=== PATIENT | female | born 1975 | race Caucasian/White ===

== ENCOUNTER 2017-09-07 11:40 | Emergency (ER) | payer MEDICAID ==
[~2017-09-07] VITALS: Ht 154.9 cm; Wt 106.6 kg
[~2017-09-07 11:40] MED LIST: ASCO500T45 PO; ASPI81CT89 PO; ATOR20TA40 PO; FERR325E14 PO; WARF5TAB1 PO
[2017-09-07 11:45] VITALS: BP 114/83
[2017-09-07] MEDS ORDERED: KETOROLAC 30 MG/ML VIAL IM ONE (12:15)
[2017-09-07] MEDS ORDERED: NACL 0.9% 1,000 ML IV ONE (12:15)
[2017-09-07 12:49] LABS: LYMPHOCYTES # (AUTO) 1.3 K/uL (2.5-16.5); WHITE BLOOD COUNT (AUTO) 8.1 K/uL (4.8-10.8)
[2017-09-07 12:55] LABS: BASOPHILS % (AUTO) 0.5 % (0.0-2.0); EOSINOPHILS # (AUTO) 0.1 K/uL (0-0.4); EOSINOPHILS % (AUTO) 1.6 % (0.0-4.0); HEMATOCRIT 26.5 % (36-48); LYMPHOCYTES % (AUTO) 16.6 % (20.5-51.1); MEAN CORPUSCULAR HEMOGLOBIN 20 pg (27-31); MEAN CORPUSCULAR HGB CONC 30 g/dL (33-37); MEAN CORPUSCULAR VOLUME 66.8 fL (80-94); MONOCYTES # (AUTO) 0.6 K/uL (0.8-1.0); MONOCYTES % (AUTO) 7.2 % (1.7-9.3); NEUTROPHILS % (AUTO) 74.1 % (42.2-75.2); PLATELET COUNT (AUTO) 404 K/uL (140-450); RED BLOOD CELL COUNT(AUTO) 3.97 MIL/uL (4.20-5.40); RED CELL DISTRIBUTION WIDTH 21.1 % (11.6-13.7)
[2017-09-07 13:07] LABS: PROTHROMBIN TIME 19.3 secs (10.8-13.4)
[2017-09-07 13:11] LABS: ALBUMIN 3.1 g/dL (3.4-5.0); ANION GAP 15.3 (8-16); CARBON DIOXIDE 24.8 mmol/L (21-32); CREATININE 0.7 mg/dL (0.6-1.3); POTASSIUM 4.1 mmol/L (3.5-5.1); TOTAL BILIRUBIN 0.2 mg/dL (0.0-1.0)
[2017-09-07 13:21] LABS: APPEARANCE,URINE TURBID (CLEAR); BILIRUBIN,URINE NEGATIVE (NEGATIVE); BLOOD, URINE 3+ (NEGATIVE); COLOR,URINE RED (YELLOW); LEUKOCYTE ESTERASE ,URINE TRACE (NEGATIVE); NITRITE, URINE NEGATIVE (NEGATIVE); UGLUCOSE NEGATIVE (NEGATIVE)
[2017-09-07 13:55] LABS: RBC,URINE TOO NUMEROUS TO COUN /HPF (0-5)
[2017-09-07 13:56] LABS: WBC,URINE 0-5 (RARE) /HPF (0-5)
[2017-09-07 15:11] VITALS: BP 120/71
== END 2017-09-07 15:04 | disposition home or self-care (01) ==
LOC: MED 11:40
DX: N93.8 Other specified abnormal uterine and vaginal bleeding (principal); N92.0 Excessive and frequent menstruation with regular cycle; D50.0 Iron deficiency anemia secondary to blood loss (chronic); R42 Dizziness and giddiness; E11.9 Type 2 diabetes mellitus without complications; Z79.899 Other long term (current) drug therapy
CPT/HCPCS: 36415; 76830; 80053; 81001; 81025; 85025; 85610; 85730; 96360; 96372; 99285; J1885; J7030; Q0092

== ENCOUNTER 2018-02-28 04:45 | Inpatient (IN) | payer MEDICAID ==
[~2018-02-28] VITALS: Ht 154.9 cm; Wt 103.4 kg
[2018-02-28 04:50] VITALS: BP 123/60
--- NOTE | 2018-02-28 04:57 | NUR ---
PT TAKEN TO BED 9
--- NOTE | 2018-02-28 05:05 | NUR ---
Dr. Cole evaluating patient at bedside.
--- NOTE | 2018-02-28 05:10 | NUR ---
PATIENT PRESENTS TO ED WITH L LEG PAIN. PT STATES SWELLING AND LEG PAIN X 4DAYS. L LEG IS VISIBLY SWOLLEN, PEDAL PULSES PRESENT, PT DENIES ANY NUMBNESS OR TINGLING IN TOES. DENIES N/V/D; SKIN IS PINK/WARM/DRY; PATIENT STATES PAIN OF 4/10 AT THIS TIME; VSS; PATIENT POSITIONED FOR COMFORT; HOB ELEVATED; BEDRAILS UP X2; BED DOWN. ER MD MADE AWARE OF PT STATUS.
--- NOTE | 2018-02-28 05:15 | NUR ---
LABS DRAWN BY RN AT BEDSIDE AND WALKED TO LAB
--- NOTE | 2018-02-28 05:35 | NUR ---
Ultrasound at bedside.
[2018-02-28 05:55] LABS: ALBUMIN 3.3 g/dL (3.4-5.0); ANION GAP 16.5 (8-16); CARBON DIOXIDE 24.2 mmol/L (21-32); CREATININE 0.7 mg/dL (0.6-1.3); POTASSIUM 3.7 mmol/L (3.5-5.1); TOTAL BILIRUBIN 0.5 mg/dL (0.0-1.0)
[2018-02-28] MEDS ORDERED: NACL 0.9% 1,000 ML IV ONE (05:55)
[2018-02-28 05:56] LABS: PROTHROMBIN TIME 12.9 secs (10.8-13.4)
[2018-02-28] MEDS ORDERED: ENOXAPARIN 100 MG/ML SYR SUBQ ONE (06:00)
[2018-02-28] MEDS ORDERED: MORPHINE SULFATE 2 MG/ML SYR IVP PRN (06:05)
[2018-02-28] MEDS ORDERED: hePARIN / DEXT 5% PREMIX 250 ML IV SCH (06:05)
[2018-02-28] MEDS ORDERED: LORazepam 2 MG/ML VIAL IM/IVP PRN (06:05)
[2018-02-28] MEDS ORDERED: DOCUSATE SODIUM 100 MG GELCAP PO PRN (06:05)
[2018-02-28] MEDS ORDERED: ONDANSETRON 4 MG/2 ML VIAL IM/IVP PRN (06:05)
[2018-02-28] MEDS ORDERED: ZOLPIDEM 5 MG TAB PO PRN (06:05)
[2018-02-28] MEDS ORDERED: HEPARIN PER PHARMACY MC PRN (06:05)
--- NOTE | 2018-02-28 06:15 | NUR ---
CALLED LAB TO NOTIFY THEM TO SEND TECH FOR RE-DRAW FOR CBC.
--- NOTE | 2018-02-28 06:20 | NUR ---
X-Ray at bedside.
--- NOTE | 2018-02-28 06:30 | NUR ---
RECEIVED PT FROM ER PER CELIA, AMBULATED TO BED WITH STANDBY ASSIST, VITAL SIGNS TAKEN, NO RESP DISTRESS NOTED, MADE COMFORTABLE ON BED, DR JACOBS AT BEDSIDE INTERVIEWING THE PT, CALL LIGHT WITHIN REACH.
--- NOTE | 2018-02-28 06:33 | NUR ---
Patient will be admitted to care of PAPITO GARCIA. Admited to MED/SURG. TRANSFERRED to room 112B. VSS. Belongings list completed. Report to CINDI BURDICK.
--- NOTE | 2018-02-28 06:50 | NUR ---
MRSA NARES SPECIMEN SENT TO LAB.
[2018-02-28 07:04] LABS: RED BLOOD CELL COUNT(AUTO) 3.97 MIL/uL (4.20-5.40); WHITE BLOOD COUNT (AUTO) 16.3 K/uL (4.8-10.8)
[2018-02-28 07:06] LABS: HEMATOCRIT 23.9 % (36-48); HEMOGLOBIN 6.9 g/dL (12.0-16.0); MEAN CORPUSCULAR HEMOGLOBIN 18 pg (27-31); MEAN CORPUSCULAR HGB CONC 29 g/dL (33-37); MEAN CORPUSCULAR VOLUME 60.1 fL (80-94); PLATELET COUNT (AUTO) 358 K/uL (140-450); RED CELL DISTRIBUTION WIDTH 20.9 % (11.6-13.7)
--- NOTE | 2018-02-28 07:15 | NUR ---
PT AWAKE, NO SIGNS OF DISTRESS, BEDSIDE REPORT GIVEN TO HEAVENLY CEBALLOS FOR CONTINUITY OF CARE.
--- NOTE | 2018-02-28 07:16 | NUR ---
RECEIVED REPORT FROM JOB COACHING NURSE. PT IN STABLE CONDITION. RESPIRATIONS EVEN AND UNLABORED. IV INTACT AND PATENT. SAFETY MEASURES IN PLACE. BED IN LOW POSITION. CALL LIGHT AT BEDSIDE. WILL CONTINUE TO MONITOR.
[2018-02-28 07:18] LABS: EOSINOPHILS % (MANUAL) 3 % (0-4); LYMPHOCYTES % (MANUAL) 6 % (20-46); MONOCYTES % (MANUAL) 4 % (5-12)
[2018-02-28 07:27] LABS: MAGNESIUM 1.9 mg/dL (1.8-2.4); PHOSPHORUS 3.1 mg/dL (2.5-4.9); THYROID STIMULATING HORMONE 0.73 uIU/mL (0.34-3.74)
--- NOTE | 2018-02-28 07:37 | NUR ---
DR JACOBS MADE AWARE OF LOW HGB-6.9.
[2018-02-28 08:00] VITALS: BP 114/54
--- NOTE | 2018-02-28 08:21 | NUR ---
GAVE REPORT TO [facility] FOR CONTINUITY OF CARE. PT SWITCHED FROM MED SURG TO TELE MONITOR. PT IN STABLE CONDITION.
--- NOTE | 2018-02-28 08:22 | NUR ---
REPORT RECEIVED FROM RN LIN, PT AWAKE ALERT, RESP EVEN UNLABORED, SKIN WARM DRY COLOR WLN, PT DENIES PAIN OR DISCOMFORT, SITTING UP EATING BREAKFAST, PT ORIENTED TO ROOM AND FLOOR, PLAN OF CARE REVIEWED, CALL PENG WITHIN REACH, SIDE RAILS UP, BED LOCKED IN LOW POSITION, WILL CONTINUE TO MONITOR.
[2018-02-28] MEDS: HYDROcodone/APAP 5/325 MG 1 TAB TAB PO PRN ×2 (08:40→23:58)
--- NOTE | 2018-02-28 08:59 | NUR ---
PATIENT HAS BEEN SCREENED AND CATEGORIZED HIGH NUTRITION RISK. PATIENT WILL BE SEEN WITHIN 1-2 DAYS OF ADMISSION. 02/28/18 03/01/[address]
--- NOTE | 2018-02-28 10:10 | NUR ---
PT UP TO BATHROOM, LIMPS DUE TO PAIN, DENIES DIZZINESS OR LIGHT HEADEDNESS, DENIES SOB, VASYL WELL
[2018-02-28] MEDS: RIVAROXABAN 15 MG TAB PO SCH ×2 (10:22→21:05)
[2018-02-28] MEDS: NACL 0.9% 1,000 ML IV SCH ×2 (10:22→22:43)
--- NOTE | 2018-02-28 10:35 | NUR ---
20G PIV TO R AC, PT VASYL WELL, PT SIGNED CONTRAST CONSENT, RADIOLOGY AWARE.
[2018-02-28 12:00] VITALS: BP 109/60
[2018-02-28] MEDS ORDERED: WARF5TAB1 PO (12:20)
--- NOTE | 2018-02-28 12:27 | NUR ---
02/28/18 RD INITIAL ASSESSMENT COMPLETED PLEASE REFER TO NUTRITION ASSESSMENT UNDER CARE ACTIVITY FOR ESTIMATED NUTRITIONAL NEEDS. 1. RECOMMEND ADVANCE DIET TO [facility] [address] PROVIDED EDUCATION ON DIABETES 3. RD TO FOLLOW-UP 3-5 DAYS, MODERATE RISK LUCIA WARNER RD
[2018-02-28] MEDS ORDERED: SODIUM FERRIC GLUCONATE 125 MG in NACL 0.9% 100 ML IV SCH (12:30)
[2018-02-28 16:00] VITALS: BP 118/64
--- NOTE | 2018-02-28 16:46 | NUR ---
PT UP OUT OF BED TO BATHROOM, STEADY GAIT WITH SLIGHT LIMP, DENIES SOB, DIFF BREATHING, O2 SAT MAINTAINS AT 96% RA, DENIES PAIN AT THIS TIME WILL CONTINUE TO MONITOR. FAMILY AT BEDSIDE
[2018-02-28 16:49] LABS: BARBITURATE, URINE NEGATIVE ng/ml (NEG <=200); BENZODIAZEPINE, URINE NEGATIVE ng/mL (NEG <=200); CANNABINOID, URINE NEGATIVE ng/mL (NEG <=50); COCAINE, URINE NEGATIVE ng/mL (NEG <=300); OPIATE, URINE NEGATIVE ng/mL (NEG <=2000); PHENCYCLIDINE SCREEN,URINE NEGATIVE ng/mL (NEG <=25)
--- NOTE | 2018-02-28 17:50 | NUR ---
PT SITTING UP IN BED RESTING QUIETLY IN NAD, RESP EVEN UNLABORED, SKIN WARM DRY COLOR WNL, DENIES CHEST PAIN OR DIFF BREATHING, IVF INFUSING, IV SITE WNL.
[2018-02-28] MEDS ORDERED: FERROUS SULFATE 325 MG TABEC PO SCH (18:00)
[2018-02-28] MEDS: ATORVASTATIN 20 MG TAB PO SCH (21:04)
[2018-02-28] MEDS: ASCORBIC ACID 500 MG TAB PO SCH (21:05)
[2018-02-28 21:36] LABS: APPEARANCE,URINE CLEAR (CLEAR); COLOR,URINE STRAW (YELLOW); PH,URINE 5.5 (5.0-9.0); UGLUCOSE NEGATIVE (NEGATIVE)
[2018-02-28 21:37] LABS: BILIRUBIN,URINE NEGATIVE (NEGATIVE); BLOOD, URINE LARGE (NEGATIVE); LEUKOCYTE ESTERASE ,URINE NEGATIVE (NEGATIVE); NITRITE, URINE NEGATIVE (NEGATIVE); RBC,URINE NONE SEEN /HPF (0-5); WBC,URINE 0-5 (RARE) /HPF (0-5)
--- NOTE | 2018-02-28 23:55 | NUR ---
RECEIVED REPORT FROM OTHER EMS INSTRUCTOR NURSE. PT LYING IN BED, WATCHING TV. NO C/O PAIN OR SOB. IVF INFUSING WELL. CALL LIGHT WITHIN REACH.
[2018-03-01] VITALS: BP 126/73
--- NOTE | 2018-03-01 02:30 | NUR ---
PT SLEEPING. NO S/S OF PAIN OR RESP DISTRESS NOTED. CALL LIGHT WITHIN REACH.
[2018-03-01 04:00] VITALS: BP 103/60
--- NOTE | 2018-03-01 05:00 | NUR ---
PT SLEEPING BUT EASILY AROUSABLE. NO S/S OF ACUTE DISTRESS NOTED.
[2018-03-01 07:07] LABS: ANION GAP 12.3 (8-16); CARBON DIOXIDE 27.5 mmol/L (21-32); CREATININE 0.6 mg/dL (0.6-1.3); POTASSIUM 3.8 mmol/L (3.5-5.1)
--- NOTE | 2018-03-01 07:25 | NUR ---
ENDORSED PT TO DAY SHIFT NURSE. PT IN STABLE CONDITION.
--- NOTE | 2018-03-01 07:28 | NUR ---
RECEIVED BEDSIDE REPORT FROM GROUNDWATER PROGRAMS DIRECTOR RN. PT IN STABLE CONDITION. DENIES PAIN AND DISCOMFORT AT THIS TIME. DENIES SOB/DIFFICULTY BREATHING. NO S/S RESPIRATORY DISTRESS. LUNGS CTA. HEART RHYTHM REGULAR. VITALS STABLE. SKIN INTACT. PT IS AMBULATORY PER GROUNDWATER PROGRAMS DIRECTOR RN. IV SITE PATENT AND ASYMPTOMATIC, INFUSING IVF PER MD ORDERS. 1+ PITTING EDEMA IN LLE. NO ERYTHEMA NOTED. ALL SAFETY PRECAUTIONS IN PLACE, WILL CONTINUE TO MONITOR. Addendum: 03/01/18 at 0810 by Alta Sylvester Meng, RN AOX4
[2018-03-01 07:47] LABS: CHOL/HDL RATIO 2.1 (1-4.5)
[2018-03-01 08:00] VITALS: BP 105/60
[2018-03-01 08:14] LABS: HEMATOCRIT 21.1 % (36-48); MEAN CORPUSCULAR HEMOGLOBIN 16 pg (27-31); MEAN CORPUSCULAR HGB CONC 27 g/dL (33-37); PLATELET COUNT (AUTO) 304 K/uL (140-450); RED BLOOD CELL COUNT(AUTO) 3.52 MIL/uL (4.20-5.40); RED CELL DISTRIBUTION WIDTH 22.7 % (11.6-13.7); WHITE BLOOD COUNT (AUTO) 9.2 K/uL (4.8-10.8)
[2018-03-01 08:16] LABS: HEMOGLOBIN 5.8 g/dL (12.0-16.0)
[2018-03-01 08:59] LABS: BASOPHILS % (MANUAL) 0 % (0-2); EOSINOPHILS % (MANUAL) 1 % (0-4); LYMPHOCYTES % (MANUAL) 17 % (20-46); MONOCYTES % (MANUAL) 5 % (5-12)
[2018-03-01] MEDS ORDERED: FERROUS SULFATE 325 MG TABEC PO SCH ×2 (09:00→09:30)
--- NOTE | 2018-03-01 09:20 | NUR ---
LAB HERE TO DRAW TYPE AND SCREEN.
[2018-03-01] MEDS: RIVAROXABAN 15 MG TAB PO SCH (09:23)
[2018-03-01] MEDS: ASCORBIC ACID 500 MG TAB PO SCH ×2 (09:23→20:46)
--- NOTE | 2018-03-01 09:31 | NUR ---
DR. PIZANO SPOKE WITH PATIENT REGARDING BLOOD TRANSFUSION. PER DR. PIZANO, WILL TRANSFUSE 1 UNIT PRBC THEN REPEAT LABS.
--- NOTE | 2018-03-01 11:02 | NUR ---
PATIENT SPEAKING WITH FAMILY MEMBER AT BEDSIDE. AOX4. DENIES DIZZINESS, LIGHTHEADEDNESS, WEAKNESS. WILL CONTINUE TO MONITOR. TYPE AND SCREEN STILL PENDING.
[2018-03-01 12:00] VITALS: BP 118/70
[2018-03-01] MEDS ORDERED: ENOXAPARIN 80 MG/0.8 ML SYR SUBQ SCH (12:00)
[2018-03-01] MEDS: FUROSEMIDE 20 MG TAB PO SCH ×2 (12:00→16:57)
[2018-03-01] MEDS ORDERED: LOVENOX 1MG/KG Q12H SUBQ SCH (12:00)
--- NOTE | 2018-03-01 12:05 | NUR ---
BENADRYL AND LASIX NOT ADMINISTERED AT THIS TIME. TYPE AND SCREEN STILL PENDING.
--- NOTE | 2018-03-01 12:08 | NUR ---
PER LAB, THEY WILL HAVE RESULTS FOR TYPE AND SCREEN IN 15 MINUTES.
--- NOTE | 2018-03-01 12:20 | NUR ---
PER NM TECH, SHE WILL BE HERE FOR THE V/Q SCAN AT AROUND 1800 TODAY.
--- NOTE | 2018-03-01 12:42 | NUR ---
TYPE AND SCREEN RESULTS STILL NOT AVAILABLE. PATIENT IS SITTING UP IN BED, EATING LUNCH. CONTINUES TO DENY DIZZINESS/LIGHTHEADEDNESS AND WEAKNESS. TOLD PATIENT TO REMAIN IN BED SHE MAY EXPERIENCE DIZZINESS UPON RISING. PT VERBALIZED UNDERSTANDING. CASHIER MANAGER AWARE THAT TYPE AND SCREEN PENDING.
--- NOTE | 2018-03-01 13:56 | NUR ---
STARTED BLOOD TRANSFUSION. VITALS STABLE. PT HAS BEEN TACHY AT BASELINE. EDUCATED PT ON THE POSSIBLE SIDE EFFECTS TO PATIENT AND TO NOTIFY RN IMMEDIATELY IF S/S TRANSFUSION REACTION. PT IS PRIMARILY [place] SPEAKING BUT PREFERS FAMILY MEMBER AT BEDSIDE TO TRANSLATE. PT AND FAMILY MEMBER VERBALIZED COMPLETE UNDERSTANDING.
--- NOTE | 2018-03-01 14:10 | NUR ---
NO S/S OF TRANSFUSION REACTION. WILL CONTINUE TO MONITOR.
[2018-03-01] MEDS: NACL 0.9% 1,000 ML IV SCH ×2 (15:23→17:39)
[2018-03-01 16:00] VITALS: BP 113/66
--- NOTE | 2018-03-01 16:13 | NUR ---
HELPED PATIENT TO THE BATHROOM. DENIES DIZZINESS, LIGHTHEADEDNESS, WEAKNESS. PT AMBULATORY WITHOUT ASSIST. SLIGHT LIMP TO LEFT LEG. ALL SAFETY PRECAUTIONS IN PLACE.
[2018-03-01] MEDS: FERROUS SULFATE 325 MG TABEC PO SCH (17:01)
--- NOTE | 2018-03-01 17:06 | NUR ---
NOTIFIED DR. PIZANO THAT BLOOD TRANSFUSION HAS COMPLETED. DR. PIZANO TO ORDER CBC. WILL HOLD OFF ON FURTHER TRANSFUSION UNTIL CBC RESULTS BACK.
[2018-03-01] MEDS: ACETAMINOPHEN 325 MG TAB PO PRN (17:40)
--- NOTE | 2018-03-01 17:40 | NUR ---
PATIENT COMPLAINING OF MILD 2/10 HEADACHE. DENIES BACK PAIN, CHILLS, DIZZINESS, SOB, ITCHING. TEMP IS 98.9 F NOW. WILL CONTINUE TO MONITOR.
--- NOTE | 2018-03-01 18:04 | NUR ---
PER LAB, TECH IS ALREADY ON THE FLOOR TO DRAW STAT CBC.
--- NOTE | 2018-03-01 18:09 | NUR ---
NOTIFIED DR. APPLE THAT LDH BODY FLUID WAS ORDERED. DR. APPLE TO CHANGE ORDER TO LDH SERUM. PER DR. APPLE, PT IS OKAY TO GO TO V/Q SCAN WITHOUT WAITING FOR STAT CBC RESULTS.
--- NOTE | 2018-03-01 18:33 | NUR ---
NM TECH HERE TO TAKE PT TO V/Q SCAN.
[2018-03-01 18:37] LABS: BASOPHILS # (AUTO) 0.2 K/uL (0.00-0.22); BASOPHILS % (AUTO) 1.6 % (0.0-2.0); EOSINOPHILS # (AUTO) 0.2 K/uL (0-0.4); EOSINOPHILS % (AUTO) 2.4 % (0.0-4.0); HEMATOCRIT 26.3 % (36-48); HEMOGLOBIN 7.6 g/dL (12.0-16.0); LYMPHOCYTES # (AUTO) 0.7 K/uL (2.5-16.5); LYMPHOCYTES % (AUTO) 7.2 % (20.5-51.1); MEAN CORPUSCULAR HEMOGLOBIN 18 pg (27-31); MEAN CORPUSCULAR HGB CONC 29 g/dL (33-37); MONOCYTES # (AUTO) 1.2 K/uL (0.8-1.0); MONOCYTES % (AUTO) 12.4 % (1.7-9.3); NEUTROPHILS # (AUTO) 7.7 K/uL (1.8-7.7); NEUTROPHILS % (AUTO) 76.4 % (42.2-75.2); PLATELET COUNT (AUTO) 340 K/uL (140-450); RED BLOOD CELL COUNT(AUTO) 4.18 MIL/uL (4.20-5.40); RED CELL DISTRIBUTION WIDTH 26.6 % (11.6-13.7)
--- NOTE | 2018-03-01 19:14 | NUR ---
ENDORSED POC TO ACCOUNTING ASSISTANT RN. PT IN NUCLEAR MED FOR V/Q SCAN NOW.
--- NOTE | 2018-03-01 19:15 | NUR ---
RECEIVED REPORT FROM DAY SHIFT NURSE TANNER-RN. PT CURRENTLY OFF UNIT FOR PULMONARY VQ. ACCORDING TO DAY SHIFT NURSE PT IS AOX4- ARABIC SPEAKING, ON ROOM AIR WITH IV SITES ON RIGHT HAND #22G AND RIGHT AC#22G INFUSING NS @60ML/HR. LEFT LEG EDEMA +3. DISCUSSED PLAN OF CARE AND PT VERBALIZED UNDERSTANDING. NO S/S OF RESPIRATORY DISTRESS OR DISCOMFORT NOTED AT THIS TIME. BED IN LOWEST POSITION, BED BREAKS ON, AND BOTH SIDE RAILS UP. BEDSIDE TABLE AND CALL LIGHT ARE WITHIN REACH. WILL CONTINUE TO MONITOR.
[2018-03-01 20:00] VITALS: BP 113/71
--- NOTE | 2018-03-01 20:00 | NUR ---
VITAL SIGNS TAKEN AND TOLERATED WELL. SPOKE WITH DR. HERNANDEZ; HOLD BENADRYL DUE TO NO OTHER ORDER OF RBC'S TO TRANSFUSE. PT ALSO REFUSED US DUE TO MALE WATER RIGHTS SPECIALIST, REQUESTING FEMALE. MD AWARE. NO S/S OF RESPIRATORY DISTRESS OR DISCOMFORT NOTED AT THIS TIME. WILL CONTINUE TO MONITOR.
[2018-03-01] MEDS: ATORVASTATIN 20 MG TAB PO SCH (20:46)
[2018-03-01] MEDS: ENOXAPARIN 100 MG/ML SYR SUBQ SCH (20:50)
--- NOTE | 2018-03-01 20:50 | NUR ---
SCHEDULED MEDICATION GIVEN. PT TOLERATED WELL. NO S/S OF RESPIRATORY DISTRESS OR DISCOMFORT NOTED AT THIS TIME. WILL CONTINUE TO MONITOR.
--- NOTE | 2018-03-01 22:00 | NUR ---
PT RESTING IN BED. NO S/S OF RESPIRATORY DISTRESS OR DISCOMFORT NOTED AT THIS TIME. WILL CONTINUE TO MONITOR.
[2018-03-02] VITALS: BP 124/72
--- NOTE | 2018-03-02 | NUR ---
VITAL SIGNS TAKEN AND TOLERATED WELL. NO S/S OF RESPIRATORY DISTRESS OR DISCOMFORT NOTED AT THIS TIME. WILL CONTINUE TO MONITOR.
--- NOTE | 2018-03-02 01:12 | NUR ---
PULMONARY VQ RESULTS: PULMONARY EMBOLISM. DR. BRIDGER CHAIDEZ.
--- NOTE | 2018-03-02 02:00 | NUR ---
PT SLEEPING IN BED. NO S/S OF RESPIRATORY DISTRESS OR DISCOMFORT NOTED AT THIS TIME. WILL CONTINUE TO MONITOR.
[2018-03-02 04:00] VITALS: BP 105/56
--- NOTE | 2018-03-02 04:00 | NUR ---
VITAL SIGNS TAKEN AND TOLERATED WELL. NO S/S OF RESPIRATORY DISTRESS OR DISCOMFORT NOTED AT THIS TIME. WILL CONTINUE TO MONITOR.
--- NOTE | 2018-03-02 06:00 | NUR ---
PT CONTINUES TO SLEEP. NO S/S OF RESPIRATORY DISTRESS OR DISCOMFORT NOTED AT THIS TIME. WILL CONTINUE TO MONITOR.
--- NOTE | 2018-03-02 07:09 | NUR ---
ENDORSED PT CARE TO DAY SHIFT NURSE TANNER-HEAVENLY FOR CONTINUITY OF CARE.
--- NOTE | 2018-03-02 07:15 | NUR ---
RECEIVED BEDSIDE REPORT FROM INDUSTRIAL CLEANING TECHNICIAN RN. PT IN STABLE CONDITION. SLEEPING IN BED, AROUSABLE BY VOICE. STATES TOLERABLE 2/10 LLE PAIN IN LLE. 1+ PITTING EDEMA IN LLE. NO ERYTHEMA NOTED. DENIES SOB/DIFFICULTY BREATHING. NO S/S RESPIRATORY DISTRESS. LUNGS CTA. HEART RHYTHM REGULAR. VITALS STABLE. DENIES DIZZINESS/LIGHTHEADEDNESS. SKIN INTACT. PT IS AMBULATORY WITH BRP. IV SITE PATENT AND ASYMPTOMATIC, INFUSING IVF PER MD ORDERS. ALL SAFETY PRECAUTIONS IN PLACE, WILL CONTINUE TO MONITOR.
[2018-03-02 08:00] VITALS: BP 112/62
[2018-03-02 08:07] LABS: HEMATOCRIT 25.1 % (36-48); HEMOGLOBIN 7.4 g/dL (12.0-16.0); MEAN CORPUSCULAR HEMOGLOBIN 19 pg (27-31); MEAN CORPUSCULAR HGB CONC 29 g/dL (33-37); MEAN CORPUSCULAR VOLUME 63.8 fL (80-94); PLATELET COUNT (AUTO) 334 K/uL (140-450); RED BLOOD CELL COUNT(AUTO) 3.94 MIL/uL (4.20-5.40); RED CELL DISTRIBUTION WIDTH 26.2 % (11.6-13.7); WHITE BLOOD COUNT (AUTO) 9.4 K/uL (4.8-10.8)
[2018-03-02 08:18] LABS: CARBON DIOXIDE 24.8 mmol/L (21-32); CREATININE 0.6 mg/dL (0.6-1.3); POTASSIUM 3.8 mmol/L (3.5-5.1)
[2018-03-02 08:25] LABS: MAGNESIUM 2.1 mg/dL (1.8-2.4); PHOSPHORUS 3.9 mg/dL (2.5-4.9)
[2018-03-02] MEDS: FERROUS SULFATE 325 MG TABEC PO SCH ×2 (08:48→17:14)
[2018-03-02 08:49] LABS: BASOPHILS % (MANUAL) 0 % (0-2); EOSINOPHILS % (MANUAL) 2 % (0-4); LYMPHOCYTES % (MANUAL) 18 % (20-46); MONOCYTES % (MANUAL) 7 % (5-12)
[2018-03-02] MEDS: ASCORBIC ACID 500 MG TAB PO SCH ×2 (08:49→21:02)
[2018-03-02] MEDS: HYDROcodone/APAP 5/325 MG 1 TAB TAB PO PRN ×2 (08:49→21:03)
[2018-03-02] MEDS: ENOXAPARIN 100 MG/ML SYR SUBQ SCH ×2 (08:53→21:09)
--- NOTE | 2018-03-02 08:53 | NUR ---
SCHEDULED MEDS ADMINISTERED PER DR. DE PAZ ADMINISTERED TYLENOL FOR C/O 05/04 MILD HEADACHE. WILL CONTINUE TO MONITOR. Addendum: 03/02/18 at 1252 by Alta Sylvester Meng, RN DISREGARD. WRONG PATIENT.
--- NOTE | 2018-03-02 08:53 | NUR ---
SCHEDULED MEDICATIONS ADMINISTERED PER ORDERS. ADMINISTERED NORCO FOR PT C/O 07/02 LLE PAIN. WILL CONTINUE TO MONITOR.
--- NOTE | 2018-03-02 11:31 | NUR ---
PT IS RESTING IN BED, CONVERSING WITH FAMILY MEMBERS AT BEDSIDE. ALL SAFETY PRECAUTIONS IN PLACE, WILL CONTINUE TO MONITOR.
[2018-03-02 12:00] VITALS: BP 117/62
--- NOTE | 2018-03-02 12:46 | NUR ---
PT RESTING IN BED. VITALS STABLE. NO C/O PAIN OR DISCOMFORT AT THIS TIME. WILL CONTINUE TO MONITOR.
[2018-03-02] MEDS: NACL 0.9% 1,000 ML IV SCH (14:37)
--- NOTE | 2018-03-02 14:51 | NUR ---
AT PATIENT'S REQUEST, DISCONNECTED FROM IVF AND SET UP BED BATH SUPPLIES FOR PATIENT. PATIENT DOES NOT NEED/WANT HELP WITH BED BATH. ALL SAFETY PRECAUTIONS IN PLACE, WILL CONTINUE TO MONITOR.
[2018-03-02 16:00] VITALS: BP 117/48
--- NOTE | 2018-03-02 17:17 | NUR ---
ADMINISTERED SCHEDULED MEDICATIONS PER MD ORDERS. PATIENT INQUIRING ABOUT US PELVIS NON OB.
--- NOTE | 2018-03-02 17:23 | NUR ---
CALLED CT/RADIOLOGY. TECH WILL BE HERE LATER TODAY FOR THE US PELVIS NON OB.
--- NOTE | 2018-03-02 19:09 | NUR ---
ENDORSED POC TO TREASURY MANAGER RN FOR CONTINUITY OF CARE. PT IN STABLE CONDITION.
--- NOTE | 2018-03-02 19:10 | NUR ---
RECEIVED REPORT FROM DAY SHIFT NURSE TANNER-RN. PT CURRENTLY OFF UNIT FOR PULMONARY VQ. ACCORDING TO DAY SHIFT NURSE PT IS AOX4- UPPER SORBIAN SPEAKING, ON ROOM AIR WITH IV SITES ON RIGHT HAND #22G AND RIGHT AC#22G INFUSING NS @60ML/HR. LEFT LEG EDEMA +3. DISCUSSED PLAN OF CARE AND PT VERBALIZED UNDERSTANDING. NO S/S OF RESPIRATORY DISTRESS OR DISCOMFORT NOTED AT THIS TIME. BED IN LOWEST POSITION, BED BREAKS ON, AND BOTH SIDE RAILS UP. BEDSIDE TABLE AND CALL LIGHT ARE WITHIN REACH. WILL CONTINUE TO MONITOR.
[2018-03-02 20:00] VITALS: BP 108/55
--- NOTE | 2018-03-02 20:00 | NUR ---
VITAL SIGNS TAKEN AND TOLERATED WELL. NO S/S OF RESPIRATORY DISTRESS OR DISCOMFORT NOTED AT THIS TIME. WILL CONTINUE TO MONITOR.
[2018-03-02] MEDS: ATORVASTATIN 20 MG TAB PO SCH (21:03)
--- NOTE | 2018-03-02 21:09 | NUR ---
SCHEDULED MEDICATION GIVEN. PT ALSO C/O PAIN 09/01- MEDICATED WITH NORCO. PT TOLERATED WELL. PT ALSO SUGGESTED HOT BLANKET. SPOKE WITH DR. SPARKS AND K-PAD HAS BEEN ORDERED. NO S/S OF RESPIRATORY DISTRESS OR DISCOMFORT NOTED AT THIS TIME. WILL CONTINUE TO MONITOR.
--- NOTE | 2018-03-02 22:00 | NUR ---
K-PAD IN PLACE. PT TOLERATING WELL. BETWEEN NORCO AND K-PAD PT HAS STATED SHE IN PAIN FREE. NO S/S OF RESPIRATORY DISTRESS OR DISCOMFORT NOTED AT THIS TIME. WILL CONTINUE TO MONITOR.
[2018-03-03] VITALS: BP 108/65
--- NOTE | 2018-03-03 | NUR ---
VITAL SIGNS TAKEN AND TOLERATED WELL. NO S/S OF RESPIRATORY DISTRESS OR DISCOMFORT NOTED AT THIS TIME. WILL CONTINUE TO MONITOR.
--- NOTE | 2018-03-03 02:00 | NUR ---
PT SLEEPING IN BED. NO S/S OF RESPIRATORY DISTRESS OR DISCOMFORT NOTED AT THIS TIME. WILL CONTINUE TO MONITOR.
[2018-03-03 04:00] VITALS: BP 107/60
--- NOTE | 2018-03-03 04:00 | NUR ---
VITAL SIGNS TAKEN AND TOLERATED WELL. NO S/S OF RESPIRATORY DISTRESS OR DISCOMFORT NOTED AT THIS TIME. WILL CONTINUE TO MONITOR.
--- NOTE | 2018-03-03 06:00 | NUR ---
PT SLEEPING IN BED. NO S/S OF RESPIRATORY DISTRESS OR DISCOMFORT NOTED AT THIS TIME. WILL CONTINUE TO MONITOR.
--- NOTE | 2018-03-03 07:44 | NUR ---
ENDORSED PT CARE TO DAY SHIFT NURSE WILMAR-RN FOR CONTINUITY OF CARE.
--- NOTE | 2018-03-03 07:45 | NUR ---
RECEIVED BEDSIDE REPORT FROM PM NURSE IRIS. PT AWAKE, VERBALLY RESPONSIVE, NO C/O DISCOMFORT. CALL LIGHT WITHIN REACH.
[2018-03-03 07:46] LABS: BASOPHILS # (AUTO) 0.1 K/uL (0.00-0.22); EOSINOPHILS # (AUTO) 0.2 K/uL (0-0.4); EOSINOPHILS % (AUTO) 2.2 % (0.0-4.0); HEMATOCRIT 25.4 % (36-48); HEMOGLOBIN 7.3 g/dL (12.0-16.0); LYMPHOCYTES # (AUTO) 1.9 K/uL (2.5-16.5); LYMPHOCYTES % (AUTO) 21.2 % (20.5-51.1); MEAN CORPUSCULAR HEMOGLOBIN 19 pg (27-31); MEAN CORPUSCULAR HGB CONC 29 g/dL (33-37); MEAN CORPUSCULAR VOLUME 65.7 fL (80-94); MONOCYTES # (AUTO) 0.7 K/uL (0.8-1.0); MONOCYTES % (AUTO) 7.4 % (1.7-9.3); NEUTROPHILS # (AUTO) 6.2 K/uL (1.8-7.7); NEUTROPHILS % (AUTO) 68.2 % (42.2-75.2); PLATELET COUNT (AUTO) 360 K/uL (140-450); RED BLOOD CELL COUNT(AUTO) 3.87 MIL/uL (4.20-5.40)
[2018-03-03 08:00] VITALS: BP 121/70
[2018-03-03 08:36] LABS: PROTHROMBIN TIME 9.8 secs (10.8-13.4)
[2018-03-03 09:07] LABS: ANION GAP 12.8 (8-16); CARBON DIOXIDE 25.4 mmol/L (21-32); CREATININE 0.6 mg/dL (0.6-1.3); POTASSIUM 4.2 mmol/L (3.5-5.1)
[2018-03-03] MEDS: FERROUS SULFATE 325 MG TABEC PO SCH ×2 (09:23→18:20)
[2018-03-03] MEDS: ASCORBIC ACID 500 MG TAB PO SCH ×2 (09:23→18:20)
[2018-03-03] MEDS: ENOXAPARIN 100 MG/ML SYR SUBQ SCH ×2 (09:27→18:30)
[2018-03-03 10:07] LABS: PHOSPHORUS 3.8 mg/dL (2.5-4.9)
[2018-03-03] MEDS ORDERED: INFLUENZA VIRUS VACCINE QUAD 0.5 ML SYR IMVAC PRN (11:35)
[2018-03-03 12:00] VITALS: BP 114/66
[2018-03-03] MEDS: ACETAMINOPHEN 325 MG TAB PO PRN (12:00)
[2018-03-03] MEDS: NACL 0.9% 1,000 ML IV SCH (12:00)
--- NOTE | 2018-03-03 12:10 | NUR ---
PT SITTING UP IN BED, EATING LUNCH. NO C/O PAIN OR DISCOMFORT. RESPIRATIONS EVEN & UNLABORED. CALL LIGHT WITHIN REACH. NO SWELLING OR REDNESS TO LEFT CALF. K-PAD IN PLACE.
--- NOTE | 2018-03-03 15:54 | NUR ---
PT LYING IN BED, AWAKE, NO C/O DISCOMFORT, RESPIRATIONS EVEN & NONLABORED IN ROOM AIR. NO REDNESS/SWELLING TO LEFT CALF. K-PAD UNDER LEFT LOWER LEG. CALL LIGHT WITHIN REACH.
[2018-03-03 16:00] VITALS: BP 106/65
[2018-03-03] MEDS ORDERED: RIVA15TA1 PO (17:14)
[2018-03-03] MEDS: ATORVASTATIN 20 MG TAB PO SCH (18:19)
--- NOTE | 2018-03-03 18:30 | NUR ---
WRITTEN & VERBAL DISCHARGE INSTRUCTIONS PROVIDED TO PT. PT'S BROTHER AT BEDSIDE TRANSLATING FROM HAITIAN/FRISIAN. PT VERBALIZED UNDERSTANDING. IV LINES DISCONTINUED. PT HAS NO C/O PAIN OR DISCOMFORT. RESPIRATIONS EVEN & NONLABORED.
--- NOTE | 2018-03-03 18:30 | NUR ---
PER DR JACOBS, ADMINISTER 2100 MEDS AT THIS TIME PRIOR TO DISCHARGE. 2100 MEDS GIVEN.
--- NOTE | 2018-03-03 18:50 | NUR ---
PT DISCHARGED TO HOME AT THIS TIME, ACCOMPANIED BY PT'S BROTHER. PT LEFT UNIT VIA WHEELCHAIR. NO C/O DISCOMFORT. NAME BAND REMOVED. ALL BELONGINGS WITH PT.
[2018-03-04 14:03] LABS: FERRITIN 156 ng/mL (15-150)
== END 2018-03-03 18:50 | disposition home or self-care (01) | DRG 134 ==
LOC: MED 04:45 → MTU 06:13
PROVIDERS: ADMIT General Practice; ATTEND General Practice
PROC: 30233N1 Transfusion of Nonautologous Red Blood Cells into Peripheral Vein, Percutaneous Approach (ICD-10-PCS; principal; 2018-03-01)
PROC: 3E02340 Introduction of Influenza Vaccine into Muscle, Percutaneous Approach (ICD-10-PCS; 2018-03-03)
DX: I26.99 Other pulmonary embolism without acute cor pulmonale (principal); R65.10 Systemic inflammatory response syndrome (SIRS) of non-infectious origin without acute organ dysfunction; I27.21 Secondary pulmonary arterial hypertension; E66.01 Morbid (severe) obesity due to excess calories; E44.1 Mild protein-calorie malnutrition; I82.432 Acute embolism and thrombosis of left popliteal vein; E78.5 Hyperlipidemia, unspecified; D50.9 Iron deficiency anemia, unspecified; I82.442 Acute embolism and thrombosis of left tibial vein; E11.9 Type 2 diabetes mellitus without complications; Z23 Encounter for immunization; Z68.41 Body mass index [BMI] 40.0-44.9, adult; Z71.3 Dietary counseling and surveillance; Z79.01 Long term (current) use of anticoagulants; Z79.82 Long term (current) use of aspirin; Z79.899 Other long term (current) drug therapy; Z79.84 Long term (current) use of oral hypoglycemic drugs; Z82.49 Family history of ischemic heart disease and other diseases of the circulatory system; Z82.5 Family history of asthma and other chronic lower respiratory diseases
CPT/HCPCS: 36415; 71045; 71275; 76856; 78582; 80048; 80053; 80305; 81001; 82272; 82728; 83010; 83036; 83540; 83690; 83735; 83880; 84100; 84134; 84443; 85025; 85045; 85379; 85610; 85730; 86886; 86900; 86901; 86920; 87081; 90658; 93971; 96360; 96372; 99285; J1650; J2916; J7030; P9016; Q0092; Q0163; Q9967

== ENCOUNTER 2019-01-11 19:05 | Emergency (ER) | payer MEDICAID ==
[~2019-01-11] VITALS: Ht 154.9 cm; Wt 99.3 kg
[~2019-01-11 19:05] MED LIST changes: -ASPI81CT89 PO; +RIVA15TA1 PO; -WARF5TAB1 PO
[2019-01-11 19:19] VITALS: BP 135/76
[2019-01-11] MEDS ORDERED: methylPREDNISolone SS 125 MG/2 ML VIAL IM ONE (20:25)
[2019-01-11 20:35] VITALS: BP 126/67
== END 2019-01-11 20:35 | disposition home or self-care (01) ==
LOC: MED 19:05
DX: R05 Cough (principal); R63.0 Anorexia; Z88.5 Allergy status to narcotic agent; Z79.899 Other long term (current) drug therapy
CPT/HCPCS: 99283

== ENCOUNTER 2019-01-17 12:55 | Inpatient (IN) | payer MEDICAID ==
[~2019-01-17] VITALS: Ht 154.9 cm; Wt 96.7 kg
[2019-01-17 12:55] VITALS: BP 110/60
--- NOTE | 2019-01-17 12:55 | NUR ---
PT BIBA ALS FROM HOME C/O DIZZINESS X1 WEEK. SKIN APPEARS PALE, WARM TO TOUCH. PT ALSO C/O SOB, RR 36, PULSE OXIMETRY 96% ON ROOM AIR. PT SPEAKING IN SHORT SENTENCES AND C/O SOB WITH SPEAKING. PT STATES SHE DID NOT FEEL WELL THIS MORNING AND WAS SEEN HERE APPROXIMATELY 1 WEEK AGO FOR A COUGH. PT STILL NOTED WITH A DRY HACKING COUGH, DENIES ANY PHLEGM PRODUCTION. PT PLACED ON SAMPLE TESTER GRINDER, PULSE OXIMETRY AND BLOOD PRESSURE MONITORING. SAMPLE TESTER GRINDER SHOWS SINUS TACHYCARDIC AT 135 BPM. PULSE OXIMETRY 96% ON ROOM AIR. PT PLACED ON OXYGEN 2L VIA NASAL CANULA. OXYGEN NOW 98% WHILE ON OXYGEN.
--- NOTE | 2019-01-17 12:55 | NUR ---
[facility] TO ER BED 09
--- NOTE | 2019-01-17 13:24 | NUR ---
blood drawn at iv start --handed to lab--- x-ray at bedside
[2019-01-17] MEDS ORDERED: RIVA20TA PO ×2 (13:28→19:03)
[2019-01-17] MEDS ORDERED: ORE25 PO ×2 (13:28→19:03)
[2019-01-17] MEDS ORDERED: ATOR20TA PO ×2 (13:28→19:03)
[2019-01-17] MEDS ORDERED: [UNRECOGNIZED DRUG - OTHER] PO (13:28)
[2019-01-17 13:36] LABS: HEMATOCRIT 28.1 % (36-48); HEMOGLOBIN 7.5 g/dL (12.0-16.0); MEAN CORPUSCULAR HEMOGLOBIN 15 pg (27-31); MEAN CORPUSCULAR HGB CONC 27 g/dL (33-37); MEAN CORPUSCULAR VOLUME 57.7 fL (80-94); PLATELET COUNT (AUTO) 247 K/uL (140-450); RED BLOOD CELL COUNT(AUTO) 4.86 MIL/uL (4.20-5.40); RED CELL DISTRIBUTION WIDTH 23.3 % (11.6-13.7); WHITE BLOOD COUNT (AUTO) 19.5 K/uL (4.8-10.8)
[2019-01-17] MEDS ORDERED: NACL 0.9% 1,000 ML IV ONE (13:45)
[2019-01-17 14:02] LABS: BASOPHILS % (MANUAL) 0 % (0-2); EOSINOPHILS % (MANUAL) 0 % (0-4); LYMPHOCYTES % (MANUAL) 9 % (20-46); MONOCYTES % (MANUAL) 7 % (5-12)
[2019-01-17 14:07] LABS: ALBUMIN 3.3 g/dL (3.4-5.0); ANION GAP 19.3 (8-16); CARBON DIOXIDE 22.2 mmol/L (21-32); CREATININE 0.9 mg/dL (0.6-1.3); POTASSIUM 4.5 mmol/L (3.5-5.1); TOTAL BILIRUBIN 0.7 mg/dL (0.0-1.0)
[2019-01-17 15:10] LABS: APPEARANCE,URINE SL CLOUDY (CLEAR); BILIRUBIN,URINE 1+ (NEGATIVE); BLOOD, URINE NEGATIVE (NEGATIVE); COLOR,URINE ORANGE (YELLOW); LEUKOCYTE ESTERASE ,URINE TRACE (NEGATIVE); NITRITE, URINE POSITIVE (NEGATIVE); PH,URINE 5.5 (5.0-9.0); UGLUCOSE NEGATIVE (NEGATIVE)
--- NOTE | 2019-01-17 15:16 | NUR ---
PT SIGNED CT ANGIO OF CHEST CONSENT FORM. MD JUAN AWARE OF BUN 20.
[2019-01-17 15:39] LABS: RBC,URINE 0 /HPF (0-5); WBC,URINE 0-5 /HPF (0-5)
--- NOTE | 2019-01-17 15:59 | NUR ---
PT TAKEN TO CT AT THIS TIME
[2019-01-17] MEDS ORDERED: hePARIN / DEXT 5% PREMIX 250 ML IV ONE (16:30)
[2019-01-17] MEDS ORDERED: HEPARIN PER PHARMACY MC PRN (16:30)
[2019-01-17 17:09] LABS: PROTHROMBIN TIME 10.4 secs (10.8-13.4)
[2019-01-17] MEDS ORDERED: HYDROcodone/APAP 5/325 MG 1 TAB TAB PO PRN (17:25)
[2019-01-17] MEDS ORDERED: ONDANSETRON 4 MG/2 ML VIAL IM/IVP PRN (17:25)
[2019-01-17] MEDS ORDERED: ACETAMINOPHEN 325 MG TAB PO PRN (17:25)
[2019-01-17] MEDS ORDERED: LORazepam 2 MG/ML VIAL IM/IVP PRN (17:25)
[2019-01-17] MEDS ORDERED: MORPHINE SULFATE 2 MG/ML SYR IVP PRN (17:25)
[2019-01-17] MEDS ORDERED: DOCUSATE SODIUM 100 MG GELCAP PO PRN (17:25)
[2019-01-17 18:01] LABS: BARBITURATE, URINE NEG. ng/ml (NEG <=200); BENZODIAZEPINE, URINE NEG. ng/mL (NEG <=200); CANNABINOID, URINE NEG. ng/mL (NEG <=50); COCAINE, URINE NEG. ng/mL (NEG <=300); OPIATE, URINE NEG. ng/mL (NEG <=2000); PHENCYCLIDINE SCREEN,URINE NEG. ng/mL (NEG <=25)
--- NOTE | 2019-01-17 18:05 | NUR ---
PT RESTING IN BED WITH FAMILY MEMBER AT BEDSIDE.
[2019-01-17 18:06] LABS: MAGNESIUM 1.8 mg/dL (1.8-2.4); PHOSPHORUS 4.1 mg/dL (2.5-4.9); THYROID STIMULATING HORMONE 1.02 uIU/mL (0.34-3.74)
--- NOTE | 2019-01-17 19:10 | NUR ---
PATIENT BROUGHT IN BY [facility] BY ER STAFF. STATED BY NURSE TONY THAT SHE CAME IN FOR SOB. PATIENT ON 2LPM OXYGEN VIA NASAL CANNULA. STATES PE DIAGNOSIS. MRSA SWABS TAKEN. PATIENT ABLE TO WALK FROM [facility] TO ICU BED 3 WITH ASSISTANCE. AAOX4. ABLE TO UNDERSTAND AND SPEAK ESTONIAN BUT PRIMARY LANGUAGE TURKMEN. ST. HR IN 130s. RR IN 40s. PATIENT CAME ONLY ON HEPARIN DRIP ORDERED BY ER. INFUSING AT 16.2 ML/HR VIA LEFT FA 20G SITE. RFA 20G SITE SALINE LOCKED. BOTH INTACT, PATENT AND FREE OF INFECTION OR REDNESS AT THIS TIME. PATIENT CONTINENT AND ABLE TO USE BEDPAN IF NEEDED. SKIN INTACT. PULSES FELT ON ALL EXTREMITIES. ABLE TO MOVE SELF. ABLE TO MAKE NEEDS KNOWN AND ABLE TO FOLLOW COMMANDS. PATIENT HAS SON, DAUGHTER, FATHER AND , SISTER IN LAW PRESENT AT BEDSIDE. PATIENT ABLE TO ANSWER QUESTIONS FOR INTAKE. ER STATES URINE IS CLEAN. STATES SHE WAS ALREADY SEEN BY ADELINA IN ER. (PULMO). STATES SHE ORDERED BLOOD 1 UNIT. MD AT BEDSIDE. STATES WBC ELEVATED BUT NO SOURCE. STATES BLOOD CLOTS THROUGHOUT LUNG. MD DENIES SOURCE OF BLEEDING. DRY WEIGHT 90KG. MD SPOKE WITH FAMILY ABOUT PLAN. PATIENT AND FAMILY MEMBERS VERBALLY STATE THEY UNDERSTAND. LUNGS CLEAR. HR REGULAR AND TACHY. BS ACTIVE IN ALL 4 QUADS. PATIENT SKIN INTACT. NON SKID SOCKS IN PLACE. SAFETY MEASURES IN PLACE. DENIES PAIN AT THIS TIME. CLEAR SPEAKING. ABLE TO REPOSITION SELF. NO SOB NOTED. NO S/S OF DISTRESS NOTED. NOTIFIED HER TO F/U WITH PCP AND GET ANOTHER SCAN IN 2-3 WEEKS TO CHECK FOR MASS IN L UPPER LOBE. UNKNOWN IF PE OR SOMETHING ELSE. PATIENT AND FAMILY VERBALLY STATE THEY UNDERSTAND. PATIENT STARTING TO CRY.HX OF LEFT CALF DVT. PATIENT STATES STOPPED BLOOD THINNER THIS PAST WEEK. PATIENT STATES COUGH PRESENT X2 WEEKS. STATES CAME TO ER X1 WEEK AGO AND WAS GIVEN COUGH MEDICINE. PATIENT COMFORTABLE IN BED AT THIS TIME. WILL CONTINUE TO MONITOR. AWARE OF ELEVATED HR AND RR AT THIS TIME, "SHE NEEDS BLOOD" ANA LUISA. WILL CONTINUE TO CLOSELY MONITOR.
--- NOTE | 2019-01-17 19:19 | NUR ---
Pt report given to Rosalva BURDICK in ICU bed 3 at bedside . Transfer of care at this time.
--- NOTE | 2019-01-17 19:56 | NUR ---
RT AT BEDSIDE FOR ABG DRAW
[2019-01-17 20:00] VITALS: BP 144/90
--- NOTE | 2019-01-17 20:00 | NUR ---
ULTRASOUND DONE AT BEDSIDE
--- NOTE | 2019-01-17 21:00 | NUR ---
ECHO DONE AT BEDSIDE
--- NOTE | 2019-01-17 21:30 | NUR ---
PER LAB CALL OF POSITIVE ANTIBODY RESULT. WILL BE SENT OUT TO FURTHER TEST. DR OROSCO NOTIFIED 2130. "OK WE WILL WAIT FOR STAT BLOOD"
--- NOTE | 2019-01-17 21:45 | NUR ---
DR OROSCO SPOKE WITH FAMILY ABOUT PLAN FOR BLOOD INFUSION
--- NOTE | 2019-01-17 21:58 | NUR ---
ECHO COMPLETED. NOTIFIED DR. OROSCO AND Ty KWAN ON ECHO RESULTS.
[2019-01-17 22:00] VITALS: BP 123/82
--- NOTE | 2019-01-17 22:46 | NUR ---
STATED FROM LAB SATHYA. LAB DRAW. GOT POSITIVE RESULT. SENT TO JUDITH. RESULTS NOT CONFIRMED. HAVING TO SEND TO [place] TO TEST. WILL HAVE TO WAIT FOR THE BLOOD. NOTIFIED MD OROSCO AT 2250STATES "OK" WILL CONTINUE TO MONITOR. NO SOB NOTED OR NO S/S/ OF DISTRESS NOTED. PATIENT UPDATED
[2019-01-17] MEDS: ASCORBIC ACID 500 MG TAB PO SCH (22:50)
[2019-01-17] MEDS ORDERED: cefTRIAXone 1,000 MG VIAL ONE (23:04)
--- NOTE | 2019-01-17 23:10 | NUR ---
RECEIVED ROCHEPHIN VIAL FROM SUPERVISOR [employer] FOR PATIENT DOSE.
[2019-01-17] MEDS: NACL 0.9% 1,000 ML IV SCH (23:15)
[2019-01-18] VITALS (46 sets, daily range): BP systolic 89–135; BP diastolic 62–91
--- NOTE | 2019-01-18 00:05 | NUR ---
PATIENT COUGHING. NOTIFIED MD. HR 140S. RR 40S. STATES OK. "WAITING ON BLOOD" WILL ORDER COUGH MEDICINE ROBITUSSIN. PER
--- NOTE | 2019-01-18 01:40 | NUR ---
CALLED PHARMACY TO VERIFY THE HEPARIN DRIP ORDER. STATES HAVE NOT CONFIRMED D/T MD ORDER. CALLED DR OROSCO. STATES PLACED ORDER HOURS AGO AND THEY SHOULD HAVE CONFIRMED. PTT NOW ORDERED 0150. PHARMACY GIVEN DR OROSCO NUMBER TO SPEAK WITH EACH OTHER. WILL FOLLOW UP ON ORDERS PER PHARMACY AND
[2019-01-18] MEDS ORDERED: hePARIN / DEXT 5% PREMIX 250 ML IV SCH ×2 (01:50→09:00)
--- NOTE | 2019-01-18 02:00 | NUR ---
PER ALIN, WILL SPEAK TO MD AND WILL CALL BACK. WILL CONTINUE TO FOLLOW UP ON NEW ORDERS. PHARMACY STATES RANGE OF GOAL PTT IS NOT THE SAME THE HOSPITALS PROTOCOL. OK PER MD AND OK PER PHARMACY TO FOLLOW GOAL.
[2019-01-18] MEDS: guaiFENesin DM 200/20 MG-10 ML 10 ML UDC PO PRN ×2 (02:01→22:19)
--- NOTE | 2019-01-18 03:10 | NUR ---
LAB, LM CALLED, STATES APTT IS 57.7. 312 NOTIFIED DRAFT ROLLER PICKER PHARMACIST ALIN PER HIS REQUEST. OF 57.7. STATES TO INCREASE THE HEPARIN DRIP 200 UNITS. CONFIRMED AND READ BACK 1620 TO 1820 UNITS. ALIN AGREED STATES TO NOTIFY MD AND CALL BACK IF ANY QUESTIONS. PHARMACY STATES THEY WILL ALSO ENDORSE IT TO DAY SHIFT TO CONFIRM AND WRITE IT IN SPECIAL INSTRUCTIONS COMMENTS OF ORDERS. [address] OROSCO STATES 200 UNITS INCREASED TO 1820 UNITS. STATES " THATS OK BY ME" AGREED WITH PHARMACIST "TO GET IT IN RANGE" ALSO STATES SHE WANTS PTT ORDERED Q3H UNTIL "IN RANGE". CHANGED DOSE AT 0330. PTT IS ORDERED FOR AM DRAWS. PHARMACIST AWARE. WILL CONTINUE TO MONITOR.
--- NOTE | 2019-01-18 04:00 | NUR ---
PATIENT REFUSED BED BATH AND BED CLEANING AT THIS TIME. PATIENTS GOWN CHANGED AT ADMISSION TO ICU WITH BLANKETS AND SHEETS. WILL CONTINUE TO MONITOR. NOTIFIED PATIENT IF ANYTHING NEEDED WE CAN DO. PATIENT STATES "LATER"
--- NOTE | 2019-01-18 04:55 | NUR ---
DR. OROSCO AT BEDSIDE. ASKED IF ANY BLOOD YET. NOTIFIED THERE IS STILL NO BLOOD. WILL CALL LAB TO FOLLOW UP. NOTIFIED OF ELEVATED HR AND RR AGAIN. STATES "BECAUSE SHE NEEDS BLOOD" WILL CONTINUE TO MONITOR. NO SOB OR S/S OF DISTRESS. "IM OK" WILL CONTINUE TO MONITOR. PATIENT REQUESTED ICE CHIPS AT THIS TIME. DENIES PAIN.
--- NOTE | 2019-01-18 05:35 | NUR ---
NOTIFIED MD OROSCO THAT THERE WAS DUPLICATE 0900 PTT DRAWS PER LAB AND TO CANCEL ONE. "I WILL TAKE CARE OF IT"
--- NOTE | 2019-01-18 05:37 | NUR ---
RT AT BEDSIDE DOING EKG. NOTIFIED ANA LUISA THAT IT WAS COMPLETE IF WANTED TO READ. "IM ON MY WAY" PER MD OROSCO
--- NOTE | 2019-01-18 05:42 | NUR ---
ABG LAB DRAWN AT BEDSIDE AT THIS TIME. MD AT PATIENT BEDSIDE READING EKG
--- NOTE | 2019-01-18 06:50 | NUR ---
DR ARORA CALLED STATES TO CALL LAB TO SEE WHERE BLOOD IS. PER LAB, SULLY, THEY ARE DOING THE BEST THEY CAN AND THE BLOOD IS STILL BEING CHECKED AT [facility]. WILL NOTIFY
[2019-01-18 06:53] LABS: HEMATOCRIT 25.7 % (36-48); MEAN CORPUSCULAR HEMOGLOBIN 15 pg (27-31); MEAN CORPUSCULAR HGB CONC 26 g/dL (33-37); MEAN CORPUSCULAR VOLUME 58.4 fL (80-94); PLATELET COUNT (AUTO) 270 K/uL (140-450); RED CELL DISTRIBUTION WIDTH 23.7 % (11.6-13.7); WHITE BLOOD COUNT (AUTO) 16.3 K/uL (4.8-10.8)
[2019-01-18 07:08] LABS: HEMOGLOBIN 6.8 g/dL (12.0-16.0)
--- NOTE | 2019-01-18 07:20 | NUR ---
CHANGE OF SHIFT REPORT GIVEN AT BEDSIDE TO DAY NURSE AUTUMN. PATIENT ALERT AND ORIENTED. CONVERSING IN CHANGE OF SHIFT REPORT. 3 MD AT BEDSIDE. PATIENT ABLE TO COMMUNICATE WITH STAFF. NO SOB NOTED. NO S/S OF DISTRESS NOTED. MDs AWARE OF BLOOD SITUATION, AND HEPARIN DRIP SITUATION. MDs AWARE OR RR AND HR VALUES. ENDORED TO DAY SHIFT.
--- NOTE | 2019-01-18 07:25 | NUR ---
RECEIVED BEDSIDE REPORT FROM POWDER COATER RN. PT IS AWAKE, ALERT AND ORIENTED X 4. ICELANDIC SPEAKING. ABLE TO MAKE NEEDS KNOWN AND FOLLOWS COMMANDS. SINUS TACHYCARDIA ON MONITOR. S1 S2 HEARD. PT IS ON O2 AT 2 LPM/NC. LUNGS SOUND CLEAR BILATERALLY. PT IS TACHYPNEIC, RR 38. ABDOMEN SOFT, ROUND, NONTENDER WITH ACTIVE BOWEL SOUNDS. PERIPHERAL IVS G20 TO LEFT AND RIGHT ANTECUBITAL ASYMPTOMATIC, PATENT AND INTACT. PT IS RECEIVING HEPARIN DRIP AT 1820 UNITS/HR AND IVF NS AT 60 ML/HR. SKIN IS INTACT, DRY AND WARM TO TOUCH. PT IS AFEBRILE. PULSES PALPABLE TO ALL EXTREMITIES. CAP REFILL < 2 SEC. PT ABLE TO MOVE ALL EXTREMITIES. BED IN LOWEST POSITION LOCKED. CALL LIGHT WITHIN REACH. NO SIGNS OF DISTRESS NOTED. WILL CONTINUE TO MONITOR.
--- NOTE | 2019-01-18 07:30 | NUR ---
DR. CASANOVA AND RESIDENT GROUP IN TO SEE PT, AWARE THAT PT IS TACHYPNEIC, RR IN HIGH 30'S TO LOW 40'S. STILL WAITING FOR BLOOD TO BE AVAILABLE. WILL FOLLOW UP ON ORDERS.
[2019-01-18 07:59] LABS: BASOPHILS % (MANUAL) 0 % (0-2); EOSINOPHILS % (MANUAL) 0 % (0-4); LYMPHOCYTES % (MANUAL) 12 % (20-46); MONOCYTES % (MANUAL) 5 % (5-12)
--- NOTE | 2019-01-18 08:05 | NUR ---
PATIENT HAS BEEN SCREENED AND CATEGORIZED HIGH NUTRITION RISK. PATIENT WILL BE SEEN WITHIN 1-2 DAYS OF ADMISSION. 01/18/[address]
[2019-01-18] MEDS ORDERED: HEPARIN PER PHARMACY MC PRN (08:10)
[2019-01-18 08:24] LABS: ANION GAP 18.3 (8-16); CARBON DIOXIDE 20.5 mmol/L (21-32); CREATININE 0.8 mg/dL (0.6-1.3); POTASSIUM 3.8 mmol/L (3.5-5.1)
[2019-01-18] MEDS: HYDROCHLOROTHIAZIDE 25 MG TAB PO SCH (08:55)
[2019-01-18] MEDS: ASCORBIC ACID 500 MG TAB PO SCH ×2 (08:55→20:17)
[2019-01-18] MEDS: ATORVASTATIN 20 MG TAB PO SCH (08:55)
[2019-01-18] MEDS: FERROUS SULFATE 325 MG TABEC PO SCH ×2 (08:55→17:10)
[2019-01-18] MEDS: LACTOBACILLUS RHAMNOSUS GG 1 EACH CAP PO SCH (08:56)
[2019-01-18] MEDS ORDERED: SODIUM FERRIC GLUCONATE 125 MG in NACL 0.9% 100 ML IV SCH (09:00)
--- NOTE | 2019-01-18 09:05 | NUR ---
MEDICATIONS ADMINISTERED ORDERED. PT TOLERATED WELL. PT HAD ONLY A FEW BITES OF BREAKFAST, STATING THAT SHE IS NOT HUNGRY. RESTING AND WATCHING TV AT THIS TIME. VSS. NO SIGNS OF SOB OR DISTRESS NOTED.
[2019-01-18] MEDS: NACL 0.9% 1,000 ML IV SCH ×2 (10:02→14:33)
[2019-01-18 10:39] LABS: CHOL/HDL RATIO 4.2 (1-4.5)
[2019-01-18 11:37] LABS: MAGNESIUM 1.8 mg/dL (1.8-2.4); PHOSPHORUS 3.6 mg/dL (2.5-4.9)
--- NOTE | 2019-01-18 12:00 | NUR ---
PT HAVING LUNCH. FAMILY AT BEDSIDE. SAFETY PRECAUTIONS IN PLACE.
--- NOTE | 2019-01-18 12:42 | NUR ---
01/18/19 RD INITIAL ASSESSMENT COMPLETED PLEASE REFER TO NUTRITION ASSESSMENT UNDER CARE ACTIVITY FOR ESTIMATED NUTRITIONAL NEEDS. RD RECOMMENDATIONS: 1. RECOMMEND CONTINUE WITH REGULAR DIET. 2. RD WILL F/U 3-5 DAYS; MODERATE RISK. LUISANA DOYLE RD
--- NOTE | 2019-01-18 13:10 | NUR ---
DR. OBREGON AT BEDSIDE EXAMINING AND SPEAKING WITH PT. WILL FOLLOW UP ON ORDERS.
--- NOTE | 2019-01-18 13:25 | NUR ---
PT SEEN AND EXAMINED BY DR. GARCIA, MADE AWARE OF PT'S INCREASED HR IN HIGH 130'S BPM. ORDER RECEIVED.
--- NOTE | 2019-01-18 13:25 | NUR ---
DR. OBREGON AND DR. JOSE Crawford. AWARE OF PT'S TACHYCARDIA AND TACHYPNEA. WILL FOLLOW UP ON ORDERS.
[2019-01-18] MEDS ORDERED: DILTIAZEM 25 MG/5 ML VIAL IVP SCH (14:00)
[2019-01-18] MEDS: DILTIAZEM 125 MG in DEXTROSE 5% 100 ML IV SCH ×2 (14:30→23:10)
--- NOTE | 2019-01-18 15:30 | NUR ---
PT HAVING DINNER. FAMILY AT BEDSIDE. Addendum: 01/18/19 at 1851 by Delroy Rosado RN WRONG TIME. PT HAVING DINNER AT 1730
--- NOTE | 2019-01-18 15:30 | NUR ---
NO CHANGE IN CONDITION AT THIS TIME. SON AT BEDSIDE. PT IS ASLEEP, FLACC 0. NO SOB OR ANY SIGNS OF DISTRESS NOTED. SAFETY PRECAUTIONS IN PLACE. WILL CONTINUE TO MONITOR.
--- NOTE | 2019-01-18 16:15 | NUR ---
PTT 116.6. HEPARIN DRIP HELD PER PROTOCOL. NO SIGNS OF ACTIVE BLEEDING NOTED.
--- NOTE | 2019-01-18 17:15 | NUR ---
HEPARIN DRIP RESTARTED AT 1520 UNITS/HR PER PROTOCOL.
--- NOTE | 2019-01-18 18:30 | NUR ---
PT'S TEMP 99.5 [address]LOOD TRANSFUSION[address] OROSCO MADE AWARE. GIVE TYLENOL AND BENADRYL PER DR. OROSCO. WILL CARRY OUT ORDER.
[2019-01-18] MEDS ORDERED: diphenhydrAMINE 50 MG CAP PO SCH (18:45)
--- NOTE | 2019-01-18 18:45 | NUR ---
BLOOD TRANSFUSION STARTED. UNIT # [id number]. TEMP 99.7. NO SIGNS OF ADVERSE REACTION NOTED AT THIS TIME. WILL CONTINUE TO MONITOR.
--- NOTE | 2019-01-18 19:15 | NUR ---
CHANGE OF SHIFT REPORT GIVEN BY DAY SHIFT NURSE AUTUMN. STATES JUST RECEIVED/STARTED 1ST UNIT BLOOD TRANSFUSION. NO REACTION NOTED. PATIENT HAS FAMILY AT BEDSIDE. 2 LPM VIA NASAL CANNULA. AAOX4. TOLERATING WELL. AFEBRILE. LUNG SOUNDS CLEAR. SYMMETRICAL BILATERALLY. RESP NORMAL AND SYMMETRICAL. HR REGULAR. SKIN INTACT. BOWEL SOUNDS ACTIVE IN ALL 4 QUADS. PATIENT ABLE TO MAKE NEEDS KNOWN ABLE TO OBEY COMMANDS. PATIENT ABLE TO REPOSITION SELF BUT HELPS WITH ASSISTANCE. REGULAR DIET. PATIENT HAS HEPARIN 15.2ML/H HEPARIN RUNNING IN RIGHT HAND 20 G. PATIENT HAS NS RUNNING AT 60 IN LEFT HAND 20 G. PATIENT ON CARDIZEM DRIP 15ML/HR (MAX DOSE). BLOOD RUNNING IN LEFT AC. NO SOB NOTED. NO S/S OF DISTRESS NOTED. STATES NO PAIN. PERRLA BILATERALLY AND EQUALLY. PATIENT EATING DINNER AT THIS TIME. INTERMITTENT COUGHING NOTED. PATIENT STATES THAT IS NORMAL. WATCHING TV. BED IN LOWEST POSITION. SAFETY MEASURES IN PLACE. VS WNL. AWARE OF EVELATED RR STILL. WILL CONTINUE TO MONITOR. LINGS CLEAR
--- NOTE | 2019-01-18 19:30 | NUR ---
REPORT GIVEN TO TRANSIT MECHANIC RN FOR CONTINUITY OF CARE. NO SIGNS OF DISTRESS AT THIS TIME.
--- NOTE | 2019-01-18 19:55 | NUR ---
NOTIFIED LAB AND MD THAT BLOOD TRANSFUSION FINISHED. NO REACTION. VSS. AFEBRILE. CLEAR LUNG SOUNDS. NOTIFIED MD OF CONSISTANT ELEVATED RR. MD AWARE. WILL CONTINUE TO MONITOR. FAMILY PRESENT AT BEDSIDE. LAB STATES THEY WILL DRAW BLOOD AT 2235 (2 HOURS AFTER INFUSION)
--- NOTE | 2019-01-18 20:30 | NUR ---
LIGHT TRE URINE OUTPUT OF 350 USING BEDPAN TOLERATED WELL
--- NOTE | 2019-01-18 21:00 | NUR ---
ICE CHIPS GIVEN. FAMILY PRESENT. 3 CHILDREN. AAOX4. STATES NO PAIN. TALKING WITH ON PHONE. PHONE AT BEDSIDE.
[2019-01-18] MEDS: hePARIN / DEXT 5% PREMIX 250 ML IV SCH (22:26)
[2019-01-18 22:29] LABS: BASOPHILS # (AUTO) 0.1 K/uL (0.00-0.22); BASOPHILS % (AUTO) 0.8 % (0.0-2.0); EOSINOPHILS # (AUTO) 0.2 K/uL (0-0.4); EOSINOPHILS % (AUTO) 1.1 % (0.0-4.0); HEMATOCRIT 27.4 % (36-48); HEMOGLOBIN 7.7 g/dL (12.0-16.0); LYMPHOCYTES # (AUTO) 0.6 K/uL (2.5-16.5); LYMPHOCYTES % (AUTO) 4.1 % (20.5-51.1); MEAN CORPUSCULAR HEMOGLOBIN 17 pg (27-31); MEAN CORPUSCULAR HGB CONC 28 g/dL (33-37); MONOCYTES # (AUTO) 1.3 K/uL (0.8-1.0); MONOCYTES % (AUTO) 8.6 % (1.7-9.3); NEUTROPHILS # (AUTO) 13.2 K/uL (1.8-7.7); NEUTROPHILS % (AUTO) 85.4 % (42.2-75.2); PLATELET COUNT (AUTO) 257 K/uL (140-450); RED BLOOD CELL COUNT(AUTO) 4.57 MIL/uL (4.20-5.40); RED CELL DISTRIBUTION WIDTH 27.4 % (11.6-13.7); WHITE BLOOD COUNT (AUTO) 15.5 K/uL (4.8-10.8)
[2019-01-18] MEDS ORDERED: DILTIAZEM 125 MG/25 ML VIAL IV ONE ×3 (22:44→22:54)
[2019-01-19] VITALS (81 sets, daily range): BP systolic 101–140; BP diastolic 56–99
--- NOTE | 2019-01-19 00:15 | NUR ---
notified by rn esau that patient ptt result was 68.9. per protocol, no change, within therapeutic range. next ptt in 6 hours. called md and made aware. states order already in for am. denies pain. will continue to monitor.no sob no si/s of distress noted. patient repositioned per request. requested apple juice. given apple juice. no coughing or choking noted. tolerated well. used bedpan 325 cc of light rossi urine. patient assisted with bedpan. no injury noted.
--- NOTE | 2019-01-19 01:40 | NUR ---
PER YOLETTE IN LAB, 2ND UNIT OF BLOOD IS READY. WILL MECHANIC INDUSTRIAL TRUCK
--- NOTE | 2019-01-19 02:15 | NUR ---
URINE OUTPUT LIGHT TRE 325 USED BEDPAN WITHOUT INJURY. TOLERATED WELL
--- NOTE | 2019-01-19 02:25 | NUR ---
STARTED 2ND UNIT OF BLOOD TRANSFUSION. VERIFIED WITH LAB AND RN NURSE. PATIENT ASYMO. AFEBRILE. PATIENT AAOX4. CLEAR LUNG SOUNDS. WILL CONTINUE TO MONITOR. VSS. PATIENT ABLE TO MAKE NEEDS KNOWN. SEE BLOOD TRANFUSION PAPERWORK FOR VITALS
--- NOTE | 2019-01-19 05:50 | NUR ---
BLOOD TRANSFUSION FINISHED. COMPLETED. AFEBRILE. NO S/S OF REACTION . NO S/S OF DISTRESS NOTED. MD AWARE OF RR. WILL CONTINUE TO MONITOR. LUNG SOUNDS CLEAR. AAOX4. DENIES PAIN. WILL CONTINUE TO MONITOR.
--- NOTE | 2019-01-19 07:00 | NUR ---
PATIENT ALERT AND ORIENTED. NO SOB NO S/S OF DISTRESS. DENIES PAIN. ENDORSED TO [place]IN[place] DAY NURSE. SAFETY MEASURES IN PLACE AND ABLE TO MAKE NEEDS KNOWN
--- NOTE | 2019-01-19 07:15 | NUR ---
RECEIVED REPORT FROM CARDBOARD INSERTER RN. PT RESTING IN BED. A/O X4. ABLE TO MAKE NEEDS KNOWN. SR ON MONITOR. SKIN DRY AND WARM TO TOUCH. LUNGS DIMINISHED. ON O2 VIA NC AT 2 LTR/MIN. DENIES ANY CHEST PAIN OR DIFFICULTY BREATHING. PERIPHERAL LINES NOTED ON BOTH ARMS. RAC AND LAC 20G. RIGHT HAND 24G. INTACT IV SITES AND LINES. FLUSHED. HEPARIN DRIP RUNNING AT 1520 UNIT/HR AND CARDIZEM DRIP RUNNING AT 15 MG/HR. NS RUNNING AT 30 ML/HR. ABDOMEN SOFT, ROUND AND NON-TENDER. ACTIVE BOWEL SOUND. SKIN INTACT. KEPT HOB ELEVATED. BED IN LOW POSITION, LOCKED. WILL CONTINUE TO MONITOR.
[2019-01-19] MEDS: FERROUS SULFATE 325 MG TABEC PO SCH ×2 (08:21→17:39)
[2019-01-19] MEDS: HYDROCHLOROTHIAZIDE 25 MG TAB PO SCH (08:21)
[2019-01-19] MEDS: ATORVASTATIN 20 MG TAB PO SCH (08:22)
[2019-01-19] MEDS: ASCORBIC ACID 500 MG TAB PO SCH ×2 (08:22→20:35)
[2019-01-19] MEDS: LACTOBACILLUS RHAMNOSUS GG 1 EACH CAP PO SCH (08:22)
[2019-01-19] MEDS: NACL 0.9% 1,000 ML IV SCH (08:29)
[2019-01-19 08:49] LABS: ANION GAP 14.3 (8-16); CREATININE 0.7 mg/dL (0.6-1.3); POTASSIUM 4.3 mmol/L (3.5-5.1)
[2019-01-19 08:50] LABS: HEMATOCRIT 30.1 % (36-48); HEMOGLOBIN 8.7 g/dL (12.0-16.0); MEAN CORPUSCULAR HEMOGLOBIN 18 pg (27-31); MEAN CORPUSCULAR HGB CONC 29 g/dL (33-37); MEAN CORPUSCULAR VOLUME 63.4 fL (80-94); PLATELET COUNT (AUTO) 254 K/uL (140-450); RED BLOOD CELL COUNT(AUTO) 4.75 MIL/uL (4.20-5.40); RED CELL DISTRIBUTION WIDTH 30.1 % (11.6-13.7); WHITE BLOOD COUNT (AUTO) 13.9 K/uL (4.8-10.8)
[2019-01-19 08:58] LABS: MAGNESIUM 1.9 mg/dL (1.8-2.4); PHOSPHORUS 4.3 mg/dL (2.5-4.9)
[2019-01-19 09:14] LABS: LYMPHOCYTES % (MANUAL) 18 % (20-46); MONOCYTES % (MANUAL) 5 % (5-12)
[2019-01-19] MEDS: DILTIAZEM 125 MG in DEXTROSE 5% 100 ML IV SCH ×2 (09:23→16:48)
--- NOTE | 2019-01-19 10:00 | NUR ---
DENIES CHEST PAIN OR DIFFICULTY BREATHING. TACHYPNIC. ASSISTED NEEDED. ST ON MONITOR. WILL CONTINUE TO MONITOR.
--- NOTE | 2019-01-19 13:20 | NUR ---
DENIES ANY CHEST PAIN OR DIFFICULTY BREATHING AT THIS TIME. SPO2 96 %. CONTINUE ON O2 AT 2 LTR/MIN. ENCOURAGED TO USE SPIROMETRY. FAMILY AT THE BEDSIDE.
--- NOTE | 2019-01-19 14:52 | NUR ---
PAGED AND RECEIVED CALL FROM DR. GARCIA. MADE AWARE OF PT STATUS, CARDIZEM DRIP AND HR. SAID START CARDIZEM 60 PO Q6H AND DISCONTINUE IV CARDIZEM DRIP AFTER 2 HOURS OF ORAL CARDIZEM. WILL CARRYOUT ORDER.
[2019-01-19] MEDS ORDERED: DILTIAZEM 60 MG TAB PO SCH (14:58)
--- NOTE | 2019-01-19 15:27 | NUR ---
NO SOB OR RESPIRATORY DISTRESS NOTED. SR ON MONITOR. NO C/O PAIN AT THIS TIME. ASSISTED NEEDED. CONTINUE ON HEPARIN DRIP AND CARDIZEM DRIP. WILL CONTINUE TO MONITOR.
[2019-01-19] MEDS: hePARIN / DEXT 5% PREMIX 250 ML IV SCH (17:30)
[2019-01-19] MEDS: DILTIAZEM 60 MG TAB PO SCH (17:59)
--- NOTE | 2019-01-19 18:33 | NUR ---
OFFERED DINNER. PT SAID SHE WILL EAT LATER. PLACED TRAY AT THE BEDSIDE TABLE.
--- NOTE | 2019-01-19 19:05 | NUR ---
SEEN BY DR. GARCIA. UPDATED PT STATUS. NO NEW ORDER.
--- NOTE | 2019-01-19 19:16 | NUR ---
NO BM NOTED DURING SHIFT. ENDORSED TO ASSEMBLY PERSON RN. PT ON STABLE CONDITION.
[2019-01-19] MEDS: guaiFENesin DM 200/20 MG-10 ML 10 ML UDC PO PRN (20:35)
--- NOTE | 2019-01-19 20:35 | NUR ---
PATIENT REQUESTED APPLE JUICE BOX. REQUESTED BED TIPTON FOR URINE. ASSISTED PATIENT WITH BEDPAN. USED WITHOUT INJURY. 350 CC OF LIGHT TRE COLORED URINE. DENIES PAIN. ADMINISTERED COUGH MEDICINE AND VITAMIN C ORDERED. PATIENT REFUSED COLACE AT THIS TIME. DENIES STOMACH PAIN. "WAIT". WILL CONTINUE TO MONITOR. PATIENTS SON AND DAUGHTER CAME TO VISIT. FREQUENT CHECKS. AAOX4. REPOSITIONED PATIENT. WILL CONTINUE TO MONITOR. PATIENT ON THE PHONE WITH SPOUSE AT THIS TIME.
--- NOTE | 2019-01-19 20:45 | NUR ---
CHANGE OF SHIFT REPORT GIVEN BY DAY NURSE BECKY AT BEDSIDE. PATIENT AWAKE ALERT AND LYING IN BED. AAOX4. 2LPM OF OXYGEN VIA NASAL CANNULA. PERRLA BILATERAL AND EQUAL. REGULAR DIET. LUNG SOUNDS CLEAR BILATERALLY. RESPIRATIONS SYMMETRICAL. HR REGULAR. BOWEL SOUNDS ACTIVE IN ALL 4 QUAD. PATIENT DENIES PAIN IN STOMACH. DENIES PAIN ANY WHERE. INTACT SKIN. ORAL CARE GIVEN. PATIENT REPOSITIONED. LAC 20 G. RIGHT HAND 20 G. PATIENT INFUSING NS AT 30ML/HR. HEPARIN DRIP 1720 UNITS/HR. BED IN LOWEST POSITION. SIDE RAILS UP. ABLE TO MAKES NEEDS KNOWN. ABLE TO OBEY COMMANDS. WILL CONTINUE TO MONITOR. Addendum: 01/19/19 at 2328 by Rosalva Black RN 1924 REPORT WAS GIVEN 01/19/2019
--- NOTE | 2019-01-19 21:24 | NUR ---
DR MENDIETA AT BEDSIDE
--- NOTE | 2019-01-19 21:48 | NUR ---
DAUGHTER AND SON BROUGHT IN SUBWAY SANDWICH FOR PATIENT. PATIENT ATE SANDWICH AND TOLERATED WELL. NO SOB NOTED OR DISTRESS. AAOX4. NO COUGHING NOTED. ABLE TO MOVE SELF UP IN BED. REPOSITIONED SELF.
[2019-01-19 21:54] LABS: BASOPHILS # (AUTO) 0.2 K/uL (0.00-0.22); BASOPHILS % (AUTO) 1.1 % (0.0-2.0); EOSINOPHILS # (AUTO) 0.2 K/uL (0-0.4); HEMATOCRIT 32.8 % (36-48); HEMOGLOBIN 9.4 g/dL (12.0-16.0); LYMPHOCYTES # (AUTO) 2.6 K/uL (2.5-16.5); LYMPHOCYTES % (AUTO) 16.2 % (20.5-51.1); MEAN CORPUSCULAR HEMOGLOBIN 18 pg (27-31); MEAN CORPUSCULAR HGB CONC 29 g/dL (33-37); MEAN CORPUSCULAR VOLUME 64.1 fL (80-94); MONOCYTES # (AUTO) 0.9 K/uL (0.8-1.0); MONOCYTES % (AUTO) 5.8 % (1.7-9.3); NEUTROPHILS # (AUTO) 12.1 K/uL (1.8-7.7); NEUTROPHILS % (AUTO) 75.9 % (42.2-75.2); PLATELET COUNT (AUTO) 267 K/uL (140-450); RED BLOOD CELL COUNT(AUTO) 5.12 MIL/uL (4.20-5.40); RED CELL DISTRIBUTION WIDTH 29.8 % (11.6-13.7); WHITE BLOOD COUNT (AUTO) 15.9 K/uL (4.8-10.8)
--- NOTE | 2019-01-19 23:42 | NUR ---
STARTED INSULIN DRIP ORDERED PER PROTOCOL AND DECREASED IT TO 1420 UNITS/HOUR
[2019-01-20] VITALS (13 sets, daily range): BP systolic 100–138; BP diastolic 70–81
--- NOTE | 2019-01-20 00:10 | NUR ---
PATIENT USED BEDPAN WITHOUT INJURY 325 CC YELLOW CLEAR URINE NOTED. REPOSITIONED. WILL CONTINUE TO MONITOR.
--- NOTE | 2019-01-20 02:00 | NUR ---
PATIENT STATES NOT WANTING TO SLEEP AT THIS TIME. STATES SHE IS WATCHING TV. AAOX4. DENIES PAIN.
--- NOTE | 2019-01-20 04:01 | NUR ---
LAB PRESENT AT BEDSIDE FOR PTT DRAW. PATIENT TOLERATED WELL.
--- NOTE | 2019-01-20 04:18 | NUR ---
ASKED PATIENT IF SHE WOULD LIKE ORAL CARE, MORNING CARE AT THIS TIME "NO THANK YOU, "ID LIKE TO DO IT AFTER BREAKFAST" " I WANT TO REST" PATIENT BED CLEAN AND NO SMELL NOTED. PATIENT HAIR IS PLACED UP IN A PONY TAIL AT THIS TIME. NO OBVIOUS SOILING. WILL CONTINUE TO MONITOR. AAOX4. ABLE TO MAKE NEEDS KNOWN.
[2019-01-20] MEDS: DILTIAZEM 60 MG TAB PO SCH ×4 (05:12→17:16)
--- NOTE | 2019-01-20 05:14 | NUR ---
PATIENT ALERT AND ORIENTED. WATCHING TV IN BED. WILL CONTINUE TO MONITOR.
[2019-01-20 06:08] LABS: FOLIC ACID 15.1 ng/mL (>3.0)
[2019-01-20 06:13] LABS: ANION GAP 17.1 (8-16); CARBON DIOXIDE 23.8 mmol/L (21-32); CREATININE 0.7 mg/dL (0.6-1.3); POTASSIUM 3.9 mmol/L (3.5-5.1)
[2019-01-20 06:19] LABS: BASOPHILS # (AUTO) 0.1 K/uL (0.00-0.22); BASOPHILS % (AUTO) 0.7 % (0.0-2.0); EOSINOPHILS # (AUTO) 0.1 K/uL (0-0.4); EOSINOPHILS % (AUTO) 1.1 % (0.0-4.0); HEMATOCRIT 30.7 % (36-48); HEMOGLOBIN 8.7 g/dL (12.0-16.0); LYMPHOCYTES # (AUTO) 2.2 K/uL (2.5-16.5); LYMPHOCYTES % (AUTO) 18.9 % (20.5-51.1); MEAN CORPUSCULAR HEMOGLOBIN 18 pg (27-31); MEAN CORPUSCULAR HGB CONC 28 g/dL (33-37); MEAN CORPUSCULAR VOLUME 64.5 fL (80-94); MONOCYTES # (AUTO) 0.7 K/uL (0.8-1.0); MONOCYTES % (AUTO) 5.8 % (1.7-9.3); NEUTROPHILS # (AUTO) 8.6 K/uL (1.8-7.7); NEUTROPHILS % (AUTO) 73.5 % (42.2-75.2); PLATELET COUNT (AUTO) 268 K/uL (140-450); RED BLOOD CELL COUNT(AUTO) 4.76 MIL/uL (4.20-5.40); RED CELL DISTRIBUTION WIDTH 29.6 % (11.6-13.7); WHITE BLOOD COUNT (AUTO) 11.7 K/uL (4.8-10.8)
[2019-01-20 06:32] LABS: MAGNESIUM 1.9 mg/dL (1.8-2.4); PHOSPHORUS 4.5 mg/dL (2.5-4.9)
--- NOTE | 2019-01-20 07:09 | NUR ---
CHANGE OF SHIFT REPORT GIVEN. AAOX4. ABLE TO MAKE NEEDS KNOWN. DENIES PAIN. NO S/S OF DISTRESS OR SOB NOTED.
[2019-01-20] MEDS ORDERED: PROBIOTIC SCREEN 1 EA MISC MC PRN (09:15)
[2019-01-20] MEDS: ATORVASTATIN 20 MG TAB PO SCH (09:52)
[2019-01-20] MEDS: ASCORBIC ACID 500 MG TAB PO SCH ×2 (09:52→20:23)
[2019-01-20] MEDS: FERROUS SULFATE 325 MG TABEC PO SCH ×2 (09:53→17:15)
[2019-01-20] MEDS: LACTOBACILLUS RHAMNOSUS GG 1 EACH CAP PO SCH (09:53)
[2019-01-20] MEDS: HYDROCHLOROTHIAZIDE 25 MG TAB PO SCH (09:56)
--- NOTE | 2019-01-20 13:10 | NUR ---
RECEIVED REPORT FROM HEAVENLY FARIAS FOR CONTINUITY OF CARE. PT IS AFEBRILE. NO C/O PAIN. SON AT BEDSIDE. NO SOB OR ANY DISTRESS NOTED AT THIS TIME. SAFETY PRECAUTIONS IN PLACE. WILL CONTINUE TO MONITOR.
--- NOTE | 2019-01-20 14:15 | NUR ---
PT USED BEDPAN, VOIDED 300 ML CLEAR YELLOW URINE. CLEANED AND PT ABLE TO MOVE ALL EXTREMITIES AND REPOSITIONS SELF.
--- NOTE | 2019-01-20 15:40 | NUR ---
NO CHANGE IN CONDITION AT THIS TIME. PT IS TAKING A NAP. VSS. SAFETY MEASURES ENSURED. WILL CONTINUE TO MONITOR.
--- NOTE | 2019-01-20 17:20 | NUR ---
MEDICATIONS ADMINISTERED ORDERED. PT TOLERATED WELL.
--- NOTE | 2019-01-20 18:00 | NUR ---
DINNER PROVIDED. PT TALKING TO RELATIVES AT BEDSIDE, STATED SHE WILL EAT LATER.
--- NOTE | 2019-01-20 18:30 | NUR ---
PT SEEN AND EXAMINED BY DR. JOSE Singh UPDATES GIVEN ON PT'S CONDITION. NO NEW ORDER RECEIVED AT THIS TIME.
--- NOTE | 2019-01-20 18:55 | NUR ---
PTT RESULT STILL PENDING. CALLED LAB TO FOLLOW UP. PER BIG DATA SOFTWARE ENGINEER, THEY TESTED SEVERAL TIMES AND THE RESULT STILL DOESN'T SHOW, WHICH MEANS PTT RESULT IS TOO HIGH, I.E., >120. HEPARIN DRIP HELD AT THIS TIME PER PROTOCOL. ASSESSED PT AND NO SIGNS OF BLEEDING NOTED AT THIS TIME. VSS.
--- NOTE | 2019-01-20 19:25 | NUR ---
CHANGE OF SHIFT REPORT GIVEN BY DAY NURSE AUTUMN AT BEDSIDE. PATIENT ALERT AND ORIENTED SITTING IN BED WITH 2LPM OF OXYGEN NASAL CANNULA. TOLERATING WELL. PERRL BOTH EYES. PATIENT USES BEDPAN FOR RESTROOM WITH NO PROBLEMS. LUNG SOUNDS CLEAR. RESPIRATIONS SYMMETRICAL AND BILATERAL. HR REGULAR. BOWEL SOUNDS ACTIVE IN ALL 4 QUADRANTS. PATIENT REFUSES COLACE AT THIS TIME. "I DONT FEEL I HAVE TO POOP" DENIES ANY STOMACH PAIN OR PAIN. NO BLEEDING NOTED FROM RECTUM. PATIENT ABLE TO MAKE NEEDS KNOW. PATIENT UNDERSTANDS AND OBEYS COMMANDS. ABLE TO COMMUNICATE WITH PATIENT WITHOUT LANGUAGE BARRIER. DENIES PAIN. PATIENT REPOSITIONS SELF. SKIN INTACT. BED IN LOWEST POSITION. SAFETY MEASURES IN PLACE. PATIENT HAS CELL PHONE PRESENT. PATIENT EATING DINNER AT THIS TIME AND "WATCHING THE BALL GAME" PATIENT ON NS AT 30 ML/HR AND HEPARIN OFF AT THIS TIME. HEPARIN WAS ENDORSED THAT WAS TURNED OFF AT 1855 AND TO BE TURNED ON AT 1955. PER PROTOCOL IT WAS 2020UNITS/HR AND WILL BE DECREASED BY 300 UNITS. TOTAL WHEN TURNED ON WILL BE 1720 UNITS /HR. STATED NEXT PTT LAB TEST WILL BE AT 0055. ORDER PRESENT FOR NEXT PTT DRAW. WILL CONTINUE TO MONITOR. CHECKED WITH CHARGE NURSE WHO CONFIRMED NEXT PTT TEST TO BE 0055. WILL CONTINUE TO MONITOR.
--- NOTE | 2019-01-20 19:27 | NUR ---
REPORT GIVEN TO SPORTS ATTORNEY RN FOR CONTINUITY OF CARE. NO S/SX OF DISTRESS AT THIS TIME.
--- NOTE | 2019-01-20 20:00 | NUR ---
PATIENT ENCOURAGED TO USE INCENTIVE SPIROMETER. PATIENT USED IS AND TOLERATED WELL. NO SOB NOTED. NO DISTRESS NOTED. CHARGE NURSE ASSISTED PATIENT WITH BEDPAN FOR VOIDING. VOIDED LIGHT TRE COLOR URINE WITH NORMAL SMELL. USED WITHOUT INJURY. 500 CC URINE. WILL CONTINUE TO MONITOR.
[2019-01-20] MEDS: guaiFENesin DM 200/20 MG-10 ML 10 ML UDC PO PRN (20:23)
--- NOTE | 2019-01-20 20:54 | NUR ---
RECEIVED PT ON 2L NC, SP02 99%, BREATH SOUNDS: CLEAR. NO RESPIRATORY DISTRESS NOTED AT THIS TIME. WILL CONTINUE TO MONITOR PT.
--- NOTE | 2019-01-20 21:00 | NUR ---
PATIENT OLDEST SON AT BEDSIDE. GAVE PO MEDICATION PER ORDERED AND PATIENT TOLERATED WELL. FOLLOWED IT UP WITH WATER. WILL CONTINUE TO MONITOR.
--- NOTE | 2019-01-20 23:00 | NUR ---
PATIENT SON AND DAUGHTER PRESENT NOW AT BEDSIDE.
[2019-01-21] VITALS (7 sets, daily range): BP systolic 114–141; BP diastolic 56–86
--- NOTE | 2019-01-21 | NUR ---
PATIENT GIVEN PO MEDICATIONS ORDERED PER MD WITH APPLE JUICE. NO COUGHING. TOLERATED WELL.PATIENT REQUESTED TO USE THE BEDPAN. 350 OUTPUT OF LIGHT TRE URINE. DENIES PAIN. CLEANED PATIENT. STATES "I FEEL BETTER NOW" PATIENT STATES SHE WANTS TO WATCH TV SHOW. NO SOB NOTED WILL CONTINUE TO MONITOR.
[2019-01-21] MEDS: DILTIAZEM 60 MG TAB PO SCH ×4 (00:06→18:04)
[2019-01-21] MEDS: hePARIN / DEXT 5% PREMIX 250 ML IV SCH (00:09)
--- NOTE | 2019-01-21 02:13 | NUR ---
PATIENT LYING IN BED. TURNED TV TO NURSE TO SHOW HER THE TV SHOW. STATES SHE "LOVES IT" "I WANT TO CONTINUE WATCHING IT" WILL CONTINUE TO MONITOR PATIENT.
[2019-01-21] MEDS: NACL 0.9% 1,000 ML IV SCH (02:37)
--- NOTE | 2019-01-21 04:32 | NUR ---
LAB DRAW. PATIENT ALERT AND ORIENTED. TOLERATED WELL.
--- NOTE | 2019-01-21 06:12 | NUR ---
PATIENT GIVEN CARDIZEM PO WITH GRAPE JUICE. TOLERATED WELL. ASSISTED PATIENT WITH BEDPAN. 350 CC LIGHT TRE URINE NORMAL SMELL. DENIES PAIN.
[2019-01-21] MEDS ORDERED: BISACODYL 5 MG TABEC PO PRN (06:25)
--- NOTE | 2019-01-21 06:59 | NUR ---
PATIENT GIVEN MEDICATION ORDERED PO. TOLERATING WELL. WILL CONTINUE TO MONITOR. NO SOB NOTED.
[2019-01-21] MEDS ORDERED: BISACODYL 5 MG TABEC PO SCH (07:00)
--- NOTE | 2019-01-21 07:13 | NUR ---
RECEIVED REPORT FROM MOTION PICTURE DIRECTOR RN. PT RESTING IN BED. A/O X4. MAKES NEEDS KNOWN. SR ON MONITOR. NO SOB OR RESPIRATORY DISTRESS NOTED. SPO2 98%. RR 25. SKIN DRY AND WARM TO TOUCH. LUNGS DIMINISHED. ON O2 VIA NC AT 2 LTR/MIN. DENIES ANY CHEST PAIN OR DIFFICULTY BREATHING AT THIS TIME. PERIPHERAL LINES NOTED ON BOTH ARMS. LAC 20G. AND RIGHT HAND 24G. INTACT IV SITES AND LINES. FLUSHED. HEPARIN DRIP RUNNING AT 1720 UNIT/HR. NS 0.9% RUNNING AT 30 ML/HR. ABDOMEN SOFT, ROUND AND NON-TENDER. ACTIVE BOWEL SOUND. DENIES ANY ABDOMINAL DISCOMFORT OR PAIN AT THIS TIME. SKIN INTACT. KEPT HOB ELEVATED. BED IN LOW POSITION, LOCKED. WILL CONTINUE TO MONITOR.
[2019-01-21 07:35] LABS: BASOPHILS % (AUTO) 0.5 % (0.0-2.0); EOSINOPHILS # (AUTO) 0.1 K/uL (0-0.4); EOSINOPHILS % (AUTO) 1.8 % (0.0-4.0); HEMATOCRIT 32.1 % (36-48); HEMOGLOBIN 9.1 g/dL (12.0-16.0); LYMPHOCYTES # (AUTO) 1.9 K/uL (2.5-16.5); LYMPHOCYTES % (AUTO) 23.3 % (20.5-51.1); MEAN CORPUSCULAR HEMOGLOBIN 19 pg (27-31); MEAN CORPUSCULAR HGB CONC 29 g/dL (33-37); MONOCYTES # (AUTO) 0.4 K/uL (0.8-1.0); MONOCYTES % (AUTO) 5.2 % (1.7-9.3); NEUTROPHILS # (AUTO) 5.6 K/uL (1.8-7.7); NEUTROPHILS % (AUTO) 69.2 % (42.2-75.2); PLATELET COUNT (AUTO) 284 K/uL (140-450); RED BLOOD CELL COUNT(AUTO) 4.86 MIL/uL (4.20-5.40); RED CELL DISTRIBUTION WIDTH 30.6 % (11.6-13.7); WHITE BLOOD COUNT (AUTO) 8.1 K/uL (4.8-10.8)
[2019-01-21 08:25] LABS: MAGNESIUM 1.9 mg/dL (1.8-2.4); PHOSPHORUS 4.9 mg/dL (2.5-4.9)
[2019-01-21] MEDS: LACTOBACILLUS RHAMNOSUS GG 1 EACH CAP PO SCH (08:33)
[2019-01-21] MEDS: HYDROCHLOROTHIAZIDE 25 MG TAB PO SCH (08:33)
[2019-01-21] MEDS: ASCORBIC ACID 500 MG TAB PO SCH (08:33)
[2019-01-21] MEDS: FERROUS SULFATE 325 MG TABEC PO SCH ×2 (08:34→18:04)
[2019-01-21] MEDS: ATORVASTATIN 20 MG TAB PO SCH (08:34)
[2019-01-21] MEDS ORDERED: RIVAROXABAN 10 MG TAB PO SCH (09:28)
[2019-01-21 09:57] LABS: CARBON DIOXIDE 21.9 mmol/L (21-32); CREATININE 0.7 mg/dL (0.6-1.3); POTASSIUM 3.9 mmol/L (3.5-5.1)
[2019-01-21] MEDS ORDERED: APIXABAN 2.5 MG TAB PO SCH (10:40)
[2019-01-21] MEDS ORDERED: DILT60TA94 PO (10:42)
[2019-01-21] MEDS ORDERED: APIX5TAB PO (10:57)
--- NOTE | 2019-01-21 11:04 | NUR ---
NO SOB NOTED. CONTINUE ON O2 AT 2 LTR/MIN. SPO2 99%. DENIES ANY CHEST PAIN OR DISCOMFORT. IV SITES INTACT. WILL CONTINUE TO MONITOR.
--- NOTE | 2019-01-21 11:08 | NUR ---
SPOKE TO DR. CARVER. SAID HOLD ON Vocal[employer] FOR NOW.
--- NOTE | 2019-01-21 12:36 | NUR ---
SITTING IN BED EATING LUNCH AT THIS TIME. NO DISTRESS NOTED. HR 100, RR 23. ASSISTED NEEDED.
--- NOTE | 2019-01-21 14:44 | NUR ---
DC'D HEPARIN DRIP 4 HOURS AFTER XARELTO GIVEN.
--- NOTE | 2019-01-21 15:35 | NUR ---
PT WENT BM X1. BLACK IN COLOR. SAMPLE SENT TO LAB FOR SOBT. DR. MEHUL CHAIDEZ.
--- NOTE | 2019-01-21 16:24 | NUR ---
PT AND SISTER IN LAW WHO WAS IN ROOM, MADE AWARE OF DISCHARGE ORDER. PT SAID HER SISTER IN LAW [facility]UNG [facility] WILL PICK HER UP.
--- NOTE | 2019-01-21 16:38 | NUR ---
Faxed prescription order for Eliquis to [facility] .
[2019-01-21] MEDS ORDERED: BENZ-196 PO (17:09)
--- NOTE | 2019-01-21 17:12 | NUR ---
NO FLU SHOT FOR NOW PER DR. CARVER. PT INFORMED TO CHECK WITH HER PCP DURING NEXT FOLLOW UP VISIT PER DR. CARVER.
--- NOTE | 2019-01-21 17:39 | NUR ---
DR. GARCIA AT THE BEDSIDE EVALUATING THE PT AT THIS TIME.
--- NOTE | 2019-01-21 18:20 | NUR ---
DISCHARGE INSTRUCTION PROVIDED TO PT AND HER BOYFRIEND. VERBALIZED UNDERSTANDING. IV LINES REMOVED. NO BLEEDING FROM THE SITE. COVERED WITH DRESSING. ID BAND REMOVED. DISCHARGED PACKAGE PROVIDED TO THE PT. INSTRUCTED FOR MD FOLLOW UP. BELONGINGS TAKEN BY PT. LEFT ROOM ON STABLE CONDITION ACCOMPANIED BY BOYFRIEND AND CHARGE NURSE.
[2019-01-22] MEDS ORDERED: RIVAROXABAN 10 MG TAB PO SCH (09:00)
== END 2019-01-21 18:20 | disposition home or self-care (01) | DRG 720 ==
LOC: MED 12:55 → MIC 17:22
PROVIDERS: ADMIT General Practice; ATTEND General Practice
PROC: 30233N1 Transfusion of Nonautologous Red Blood Cells into Peripheral Vein, Percutaneous Approach (ICD-10-PCS; principal; 2019-01-18)
DX: A41.9 Sepsis, unspecified organism (principal); I26.92 Saddle embolus of pulmonary artery without acute cor pulmonale; J96.01 Acute respiratory failure with hypoxia; E43 Unspecified severe protein-calorie malnutrition; I27.20 Pulmonary hypertension, unspecified; I48.91 Unspecified atrial fibrillation; E66.01 Morbid (severe) obesity due to excess calories; E86.0 Dehydration; N39.0 Urinary tract infection, site not specified; D50.9 Iron deficiency anemia, unspecified; E78.5 Hyperlipidemia, unspecified; I10 Essential (primary) hypertension; E78.00 Pure hypercholesterolemia, unspecified; D64.9 Anemia, unspecified; D72.829 Elevated white blood cell count, unspecified; Z68.41 Body mass index [BMI] 40.0-44.9, adult; Z86.718 Personal history of other venous thrombosis and embolism; Z88.5 Allergy status to narcotic agent; Z82.5 Family history of asthma and other chronic lower respiratory diseases; Z82.49 Family history of ischemic heart disease and other diseases of the circulatory system; Z91.19 Patient's noncompliance with other medical treatment and regimen
CPT/HCPCS: 36415; 36600; 71045; 71275; 80048; 80053; 80305; 81001; 82140; 82150; 82607; 82728; 82746; 82803; 83036; 83540; 83605; 83690; 83735; 83880; 84100; 84443; 84484; 85025; 85045; 85610; 85730; 86870; 86886; 86900; 86901; 86920; 87040; 87081; 87086; 87804; 93005; 93970; 96361; 96374; 99285; J0696; J1644; J2916; J3490; J7030; J7060; P9016; Q0092; Q0163; Q9967

== ENCOUNTER 2019-05-19 16:10 | Inpatient (IN) | payer MEDICAID ==
[~2019-05-19] VITALS: Ht 154.9 cm; Wt 96.2 kg
[~2019-05-19 16:10] MED LIST changes: +APIX5TAB PO; +ATOR20TA PO; -ATOR20TA40 PO; +BENZ-196 PO; +DILT60TA94 PO; +ORE25 PO; -RIVA15TA1 PO; +[UNRECOGNIZED DRUG - OTHER] PO
[2019-05-19 17:00] VITALS: BP 149/63
--- NOTE | 2019-05-19 17:09 | NUR ---
UNABLE TO VOID AT THIS TIME
--- NOTE | 2019-05-19 17:17 | NUR ---
43YO F C/O VAGINAL BLEEDING X 1 WEEK. PT STATES THAT SHE CHANGES A SOAKED DIAPER EACH TIME SHE GOES TO THE RESTROOM. ALSO COMPLAINS OF DIZZINESS AND WEAKNESS WHICH STARTED 4 DAYS AGO. DENIES URINARY SYMPTOMS, ABDOMINAL PAIN. VSS. PT APPEARS PALE. CBS ON ALL LUNG HOLLINS. PT RESTING COMFORTABLY IN BED. ERMD MADE AWARE. PMH: ANEMIA, THROMBOSIS MEDS: ATORVASTATIN, HCTZ, XARELTO, IRON
--- NOTE | 2019-05-19 17:45 | NUR ---
PT STILL UNABLE TO VOID AT THIS TIME. GAVE PT A CUP OF WATER.
--- NOTE | 2019-05-19 19:20 | NUR ---
REPORT RECEIVED FROM LIA BURDICK. PATIENT AOX4, BREATHING EVEN AND UNLABORED. PATIENT STATES SHE FEELS A BIT DIZZY AT THIS TIME. SON AT BEDSIDE.
[2019-05-19] MEDS ORDERED: NACL 0.9% 1,000 ML IV ONE (19:45)
--- NOTE | 2019-05-19 19:45 | NUR ---
LAB AT BEDSIDE DRAWING BLOOD FOR PATIENT
[2019-05-19 20:20] LABS: APPEARANCE,URINE BLOODY (CLEAR); BILIRUBIN,URINE NEGATIVE (NEGATIVE); BLOOD, URINE 3+ (NEGATIVE); COLOR,URINE RED (YELLOW); LEUKOCYTE ESTERASE ,URINE 2+ (NEGATIVE); NITRITE, URINE POSITIVE (NEGATIVE); PH,URINE 7.5 (5.0-9.0); UGLUCOSE TRACE (NEGATIVE)
--- NOTE | 2019-05-19 20:30 | NUR ---
PATIENT AOX4, BREATHING EVEN AND UNLABORED, SON AT BEDSIDE.
[2019-05-19 20:37] LABS: RBC,URINE >100 /HPF (0-5); WBC,URINE 80-100 /HPF (0-5)
[2019-05-19 20:41] LABS: BASOPHILS % (AUTO) 0.5 % (0.0-2.0); EOSINOPHILS % (AUTO) 0.1 % (0.0-4.0); LYMPHOCYTES # (AUTO) 0.8 K/uL (2.5-16.5); LYMPHOCYTES % (AUTO) 8.9 % (20.5-51.1); MEAN CORPUSCULAR HEMOGLOBIN 19 pg (27-31); MEAN CORPUSCULAR HGB CONC 29 g/dL (33-37); MEAN CORPUSCULAR VOLUME 65.5 fL (80-94); MONOCYTES # (AUTO) 0.5 K/uL (0.8-1.0); MONOCYTES % (AUTO) 5.9 % (1.7-9.3); NEUTROPHILS # (AUTO) 7.1 K/uL (1.8-7.7); NEUTROPHILS % (AUTO) 84.6 % (42.2-75.2); PLATELET COUNT (AUTO) 336 K/uL (140-450); RED BLOOD CELL COUNT(AUTO) 1.97 MIL/uL (4.20-5.40); RED CELL DISTRIBUTION WIDTH 22.9 % (11.6-13.7); WHITE BLOOD COUNT (AUTO) 8.4 K/uL (4.8-10.8)
[2019-05-19 20:42] LABS: PROTHROMBIN TIME 11.6 secs (10.8-13.4)
[2019-05-19 20:44] LABS: ALBUMIN 2.9 g/dL (3.4-5.0); ANION GAP 12.5 (8-16); CARBON DIOXIDE 25.8 mmol/L (21-32); CREATININE 0.6 mg/dL (0.6-1.3); POTASSIUM 4.3 mmol/L (3.5-5.1); TOTAL BILIRUBIN 0.3 mg/dL (0.0-1.0)
[2019-05-19 20:45] LABS: HEMATOCRIT 12.9 % (36-48); HEMOGLOBIN 3.7 g/dL (12.0-16.0)
[2019-05-19] MEDS ORDERED: ACETAMINOPHEN 325 MG TAB PO PRN (21:20)
[2019-05-19] MEDS ORDERED: ZOLPIDEM 5 MG TAB PO PRN (21:20)
[2019-05-19] MEDS ORDERED: guaiFENesin DM 200/20 MG-10 ML 10 ML UDC PO PRN (21:20)
[2019-05-19] MEDS ORDERED: ONDANSETRON 4 MG/2 ML VIAL IM/IVP PRN (21:20)
[2019-05-19] MEDS ORDERED: DOCUSATE SODIUM 100 MG GELCAP PO PRN (21:20)
--- NOTE | 2019-05-19 21:30 | NUR ---
PATIENT AOX4, BREATHING EVEN ANDUNLABORED. PT NOTIFIED WE ARE STILL WAITING FOR BLOOD BANK.
--- NOTE | 2019-05-19 21:30 | NUR ---
SPOKE TO LAB. BLOOD POSITIVE FOR ANTIBODIES IN BLOOD. RETESTING TO CONFIRM. DR NAVARRETE MADE AWARE. LAB STATES MAY NEED SEND OUT FOR BLOOD WITH [facility].
--- NOTE | 2019-05-19 21:35 | NUR ---
PT IS NOW NPO. RANDI BURDICK MADE AWARE.
[2019-05-19 21:55] LABS: CHOL/HDL RATIO 2.9 (1-4.5); FREE T4 (FREE THYROXINE) 0.98 ng/dL (0.76-1.46); PHOSPHORUS 3.2 mg/dL (2.5-4.9); THYROID STIMULATING HORMONE 1.05 uIU/mL (0.34-3.74)
[2019-05-19 22:03] LABS: BARBITURATE, URINE NEG. ng/ml (NEG <=200); BENZODIAZEPINE, URINE NEG. ng/mL (NEG <=200); CANNABINOID, URINE NEG. ng/mL (NEG <=50); COCAINE, URINE NEG. ng/mL (NEG <=300); OPIATE, URINE NEG. ng/mL (NEG <=2000); PHENCYCLIDINE SCREEN,URINE NEG. ng/mL (NEG <=25)
--- NOTE | 2019-05-19 22:30 | NUR ---
PATIENT AOX4, BREATHING EVEN AND UNLABORED. PATIENT NOTIFIED WE ARE STILL WAITING FOR BLOOD FROM BLOOD BANK.
[2019-05-19 23:00] VITALS: BP 129/72
--- NOTE | 2019-05-19 23:00 | NUR ---
Patient will be admitted to care of DR COBOS. Admited to ICU. Will go to room 3. Belongings list completed. Report to LUCIANA BURDICK.
--- NOTE | 2019-05-19 23:00 | NUR ---
PT TRANSFERRED TO ICU 3 FROM ER VIA GURNEY. NO DISTRESS OR COMPLICATIONS NOTED. PT A&O X3. PT CALM AND COOPERATIVE ABLE TO FOLLOW COMMANDS. PT HAS PALE SKIN COLOR. MILD WEAKNESS. SKIN INTACT. WARM AND DRY. PT ON GAVINO PAD, HAS VAGINAL BLEEDING. PT HAS SLIGHT TEMPERATURE. 100.0 COOLING MEASURES PROVIDED. ICE PACKS PROVIDED. LUNG SOUNDS CLEAR. RESPIRATIONS EVEN AND UNLABORED. HEART SOUNDS HEARD S1 AND S2. ABDOMEN SOFT AND ROUND, NON TENDER. BOWEL SOUNDS ACTIVE. IV SITE R AC 22 GAUGE AND LAC 20 GAUGE, BOTH SALINE LOCK. BED LOCKED IN LOWEST POSITION. WILL CONTINUE TO MONITOR.
[2019-05-19] MEDS: DEXT 5% /NACL 0.9% 1,000 ML IV SCH (23:28)
[2019-05-19 23:30] VITALS: BP 116/67
--- NOTE | 2019-05-19 23:30 | NUR ---
COOLING MEASURES EFFECTIVE. ICE PACKS PROVIDED. TEMPERATURE IS 98.5 DEGREES F.
--- NOTE | 2019-05-19 23:50 | NUR ---
SPOKE WITH CIVIL ENGINEERING PROFESSOR, PT'S BLOOD TESTED POSITIVE ANTIBODY. LAB STATED IT WILL TAKE SOME TIME FOR BLOOD DONATION TO BE DELIVERED FROM [facility]. DR CASANOVA AWARE BLOOD IS STILL BEING DELIVERED. ORDERS TO HAVE PT ON ICU STATUS FOR CLOSE MONITORING.
[2019-05-20] VITALS (14 sets, daily range): BP systolic 97–139; BP diastolic 34–93
[2019-05-20] MEDS: HYDROcodone/APAP 7.5/325 MG 1 TAB PO PRN ×2 (00:29→22:49)
[2019-05-20] MEDS: FERROUS SULFATE 325 MG TABEC PO SCH ×3 (00:29→18:38)
--- NOTE | 2019-05-20 00:30 | NUR ---
PT C/O OF 4/10 HEADACHE PAIN. 1 TAB OF NORCO GIVEN PRN. WILL CONTINUE TO MONITOR.
[2019-05-20] MEDS ORDERED: cefTRIAXone 1,000 MG VIAL ONE (00:46)
--- NOTE | 2019-05-20 01:30 | NUR ---
PT STATES RELIEF OF PAIN. REPORTS 0/10 PAIN.
--- NOTE | 2019-05-20 01:42 | NUR ---
TINNER HELPER IN TO DRAW BLOOD FOR CROSS BLOOD TYPE MATCH.
--- NOTE | 2019-05-20 03:50 | NUR ---
1 UNIT OF BLOOD TRANSFUSION STARTED. WILL CONTINUE TO MONITOR.
--- NOTE | 2019-05-20 05:08 | NUR ---
BLOOD TRANSFUSION CURRENTLY INFUSING, NO REACTION NOTED. VITAL SIGNS STABLE. WILL CONTINUE TO MONITOR.
[2019-05-20] MEDS: DEXT 5% /NACL 0.9% 1,000 ML IV SCH (06:14)
--- NOTE | 2019-05-20 06:53 | NUR ---
2ND UNIT OF PACKED RBCS STARTED, WILL CONTINUE TO MONITOR.
--- NOTE | 2019-05-20 07:22 | NUR ---
REPORT GIVEN TO AM SHIFT RN FOR CONTINUITY OF CARE.
--- NOTE | 2019-05-20 07:30 | NUR ---
BEDSIDE REPORT RECEIVED FROM FULL STACK JAVA DEVELOPER NURSE, PT AWAKE ALERT, WATCHING TV, RESP EVEN UNLABORED, BS CLEAR TO AUSC, ON RA, SKIN WARM DRY COLOR PALE, PT ON MONITOR SR-ST, HR 109, BP 111/73, O2SAT 98% TEMP 98.1, PIV TO RAC 22G, D5NS AT 120ML/HR, LAC 20G BLOOD TRANSFUSING AT 100ML/HR, NO S/S OF REACTIONS NOTED, ABD SOFT, NON TENDER, +BS X4Q, SML AMT VAG BLEED NOTED ON PAD, PT DENIES PAIN OR DISCOMFORT AT THIS TIME, POC REVIEWED, ALL SAFETY MEASURES IN PLACE, WILL CONTINUE TO MONITOR.
--- NOTE | 2019-05-20 07:50 | NUR ---
DR PETERSON, DR MARTÍNEZ, DR MENDIETA AT BEDSIDE FOR EVAL. NEW PRBC ORDER 2 UNITS CLARIFIED, PT TO RECEIVE TOTAL OF [address] MARTÍNEZ.
--- NOTE | 2019-05-20 07:55 | NUR ---
US AT BEDSIDE
--- NOTE | 2019-05-20 08:15 | NUR ---
DR COBOS AND MEDICAL TEAM AT BEDSIDE.
--- NOTE | 2019-05-20 08:18 | NUR ---
PT VOIDED IN BEDPAN 350ML DARK URINE MIXED WITH BLOOD.
--- NOTE | 2019-05-20 08:21 | NUR ---
PATIENT HAS BEEN SCREENED AND CATEGORIZED MODERATE NUTRITION RISK. PATIENT WILL BE SEEN WITHIN 3-5 DAYS OF ADMISSION. 05/22/19 05/24/[address]
[2019-05-20] MEDS: ATORVASTATIN 20 MG TAB PO SCH (08:40)
--- NOTE | 2019-05-20 09:10 | NUR ---
PT TO CT ACCOMPANIED BY RN ON MONITOR.
--- NOTE | 2019-05-20 09:55 | NUR ---
BLOOD TRANSFUSION COMPLETED, NO S/S OF REACTION NOTED, 3RD UNIT NOT READY PER BLOOD BANK, WILL CONTINUE TO MONIOTOR
--- NOTE | 2019-05-20 10:15 | NUR ---
3RD UNIT OF PRBC STARTED. BLOOD DOUBLE CHECKED WITH 2 NURSES, HEAVENLY HART. Addendum: 05/20/19 at 1229 by Tamar Jackson RN BLOOD TRANSFUSION STARTED AT 1115, NOT 1015
--- NOTE | 2019-05-20 11:05 | NUR ---
PT ASSISTED TO VOID IN BEDPAN, 400ML LARGE BLOOD CLOT NOTED IN URINE.
--- NOTE | 2019-05-20 11:47 | NUR ---
DR DONAHUE AT BEDSIDE.
--- NOTE | 2019-05-20 11:54 | NUR ---
DISCHARGE PLANNING: THIS IS A 43 Y/O FEMALE PATIENT FROM HOME, WHO CAME IN DUE TO WORSENING VAGINAL BLEED. PAST MEDICAL HISTORY INCLUDE IRON DEFICIENCY ANEMIA, EDEMA, PULMONARY EMBOLISM AND DVT. INITIAL DIAGNOSIS OF VAGINAL BLEEDING AND SEVER ANEMIA. CURRENT LABS INCLUDE WBC 8.4, H/H 3.7/12.9, NA/K 138/4.3, BUN/CREA 10/0.6 AND ALB 2.9. ON ROCEPHIN. PULMO AND WATER RESOURCE PROJECT MANAGER CONSULTS IN PLACE. 3 UNITS TOTAL OF PRBC ORDERED. DC PLAN PENDING ON PATIENT'S RESPONSE TO TREATMENT. Addendum: 05/20/19 at 1217 by Marisel Allison RECEIVED AN ORDER FOR HIGHER LEVEL TRANSFER FOR IVC PLACEMENT. CONTACTED [facility] AT [phone], ABLE TO SPEAK TO SORAYA MOCTEZUMA, HE PROVIDED ME WITH FAX NUMBER [phone] TO SEND REFERRAL. CONTACTED [facility] CM DEPT AT [phone], ABLE TO SPEAK TO PIO REGARDING REFERRAL. SHE CONFIRMED FAX NUMBER [phone] TO SEND REFERRAL. CLINICALS SENT TO THE PROVIDED FAX NUMBER. WILL FOLLOW UP. Addendum: 05/20/19 at 1504 by Karime Saucedo CM DC PLANNING: RECEIVED A CALL FROM [facility] ANDREA LIRA STATED THEY CAN NOT TAKE PATIENT WHILE HE IS IN ICU STATUS .PT HAS TO BE MED SURGE STATUS . NOTIFIED DR DE LA VEGA . Addendum: 05/20/19 at 1628 by Karime Saucedo CM DC PLANNING CALLED [facility] SPOKE WITH SORAYA GARCIALANDSCAPE CONTRACTOR NOTIFIED HIM PT CAN BE TELE STATUS , PER SORAYA STATED OK AND CHECK WITH IR AND CALLED BACK AND STATED HE HAS TO COORDINATE WITH [facility] AND EVERYONE LEFT FOR THE DAY AND WILL ARRANGE FOR TOMORROW.
[2019-05-20] MEDS ORDERED: CALCIUM CHLORIDE 10% 1,000 MG in NACL 0.9% 100 ML IV ONE (12:30)
[2019-05-20] MEDS: NACL 0.9% 1,000 ML IV SCH (13:16)
--- NOTE | 2019-05-20 13:58 | NUR ---
4TH UNIT OF PRBC STARTED, VERIFIED WITH TANNER ROSE AND MYSELF, PT AWAKE ALERT, SMALL AMT OF BLOOD IN GAVINO PAD, WILL MONITOR CLOSELY FOR BLOOD TRANSFUSION REACTIONS.
--- NOTE | 2019-05-20 15:19 | NUR ---
PT'S SON AND VISITOR AT BEDSIDE, BLOOD TRANSFUSION CONTINUES, NO S/S OF REACTION NOTED, WILL CONTINUE TO MONIOTOR
--- NOTE | 2019-05-20 15:41 | NUR ---
NOTIFIED DR. JACOBS, THERE IS ABOUT [address] JACOBS. 30 MINUTES AFTER BLOOD TRANSFUSION, CHECK BNP AND CBC, ORDER DESK CALLER IS WORKING ON TRANSFERRING.
--- NOTE | 2019-05-20 16:08 | NUR ---
4TH UNIT OF PRBC COMPLETED AT THIS TIME, PT WITHOUT S/S OF REACTION.
--- NOTE | 2019-05-20 16:35 | NUR ---
CALLED LAB, NOTIFIED PT IS READY FOR BLOOD DRAW.
[2019-05-20 17:09] LABS: BASOPHILS # (AUTO) 0.1 K/uL (0.00-0.22); EOSINOPHILS % (AUTO) 0.5 % (0.0-4.0); HEMATOCRIT 30.9 % (36-48); HEMOGLOBIN 10.1 g/dL (12.0-16.0); LYMPHOCYTES # (AUTO) 1.4 K/uL (2.5-16.5); MEAN CORPUSCULAR HEMOGLOBIN 25 pg (27-31); MEAN CORPUSCULAR HGB CONC 33 g/dL (33-37); MONOCYTES # (AUTO) 0.7 K/uL (0.8-1.0); MONOCYTES % (AUTO) 7.3 % (1.7-9.3); NEUTROPHILS # (AUTO) 7.6 K/uL (1.8-7.7); NEUTROPHILS % (AUTO) 77.2 % (42.2-75.2); PLATELET COUNT (AUTO) 284 K/uL (140-450); RED BLOOD CELL COUNT(AUTO) 4.06 MIL/uL (4.20-5.40); RED CELL DISTRIBUTION WIDTH 23.7 % (11.6-13.7); WHITE BLOOD COUNT (AUTO) 9.9 K/uL (4.8-10.8)
[2019-05-20 17:26] LABS: ANION GAP 9.8 (8-16); CARBON DIOXIDE 27.3 mmol/L (21-32); CREATININE 0.5 mg/dL (0.6-1.3); POTASSIUM 4.1 mmol/L (3.5-5.1)
[2019-05-20 17:28] LABS: MAGNESIUM 2.1 mg/dL (1.8-2.4); PHOSPHORUS 2.9 mg/dL (2.5-4.9)
--- NOTE | 2019-05-20 17:33 | NUR ---
DR KOCH AT BEDSIDE TO DISCUSS POC WITH PATIENT, AWAITING CALL BACK FROM [facility] FOR TRANSFER FOR IVC FILTER PLACEMENT. DR PETERSON WILL F/U WITH PT AT [facility], PT OK TO EAT TONIGHT PER DR OKCH. CRACKERS, WATER AND APPLESAUCE PROVIDED TO PT.
--- NOTE | 2019-05-20 18:30 | NUR ---
PT VASYL APPROX 50% DINNER TRAY, PT WITHOUT N/V, PT SITTING UP RESTING QUIETLY IN NO ACUTE DISTRESS. IVF CONTINUES TO INFUSE NS @60ML/HR.
--- NOTE | 2019-05-20 19:15 | NUR ---
BEDSIDE REPORT GIVEN TO WATER TRAINER NURSE SALVADOR COPE IN STABLE CONDITION.
--- NOTE | 2019-05-20 19:15 | NUR ---
RECEIVED REPORT FROM BLADIMIR BURDICK. PT A&O X3. PT CALM AND COOPERATIVE. SINUS TACHYCARDIA ON MONITOR. HEART SOUNDS HEARD S1 AND S2. LUNG SOUNDS CLEAR. ABDOMEN SOFT, ROUND, NON TENDER. SKIN IS WARM AND DRY. DENIES PAIN. HAS PERINEAL PAD ON. ABLE TO FABIANO BEDPAN. CALL LIGHT WITHIN REACH, BED LOCKED IN LOWEST POSITION. WILL CONTINUE TO MONITOR. Addendum: 05/20/19 at 2000 by Ron Akins RN IV SITE, RAC 22 GAUGE, INFUSING NS AT 60 ML/HR. L AC 20 GAUGE, INTACT, PATENT, GOOD BLOOD RETURN, SALINE LOCKED.
--- NOTE | 2019-05-20 21:50 | NUR ---
PT RESTING IN BED, A&O X4. ABLE TO MAKE NEEDS KNOWN. CALL LIGHT IN WITHIN REACH. WILL CONTINUE TO MONITOR.
--- NOTE | 2019-05-20 23:00 | NUR ---
PT C/O / HEADACHE PAIN. 1 TAB OF NORCO PRN GIVEN. Addendum: 05/21/19 at 0047 by Ron Akins RN PT STATES RELIEF OF PAIN.
[2019-05-21] VITALS (11 sets, daily range): BP systolic 104–131; BP diastolic 51–85
--- NOTE | 2019-05-21 01:00 | NUR ---
CHECKED ON PATIENT NO SIGNS OF RESPIRATORY DISTRESS, NO PAIN
--- NOTE | 2019-05-21 01:20 | NUR ---
PT RESTING IN BED. ABLE TO MAKE NEEDS KNOWN. ON ROOM AIR. RESPIRATION EVEN AND UNLABORED. CHEST RISE IS SYMMETRICAL. SAFETY PRECAUTIONS IN PLACE. WILL CONTINUE TO MONITOR.
--- NOTE | 2019-05-21 03:03 | NUR ---
PT HAS EYES CLOSED, RESTING IN BED. RESPIRATIONS EVEN AND UNLABORED. CHEST RISE IS SYMMETRICAL. SAFETY PRECAUTIONS IN PLACE. WILL CONTINUE TO MONITOR.
--- NOTE | 2019-05-21 04:12 | NUR ---
CHANGED PERINEAL PAD, MINIMAL SPOTTING NOTED. WILL CONTINUE TO MONITOR.
[2019-05-21 06:23] LABS: BASOPHILS # (AUTO) 0.1 K/uL (0.00-0.22); BASOPHILS % (AUTO) 0.8 % (0.0-2.0); EOSINOPHILS # (AUTO) 0.1 K/uL (0-0.4); HEMOGLOBIN 8.9 g/dL (12.0-16.0); LYMPHOCYTES # (AUTO) 1.4 K/uL (2.5-16.5); LYMPHOCYTES % (AUTO) 18.3 % (20.5-51.1); MEAN CORPUSCULAR HEMOGLOBIN 25 pg (27-31); MEAN CORPUSCULAR HGB CONC 33 g/dL (33-37); MEAN CORPUSCULAR VOLUME 75.3 fL (80-94); MONOCYTES # (AUTO) 0.5 K/uL (0.8-1.0); MONOCYTES % (AUTO) 7.1 % (1.7-9.3); NEUTROPHILS # (AUTO) 5.6 K/uL (1.8-7.7); NEUTROPHILS % (AUTO) 72.8 % (42.2-75.2); PLATELET COUNT (AUTO) 246 K/uL (140-450); RED BLOOD CELL COUNT(AUTO) 3.58 MIL/uL (4.20-5.40); RED CELL DISTRIBUTION WIDTH 24.4 % (11.6-13.7); WHITE BLOOD COUNT (AUTO) 7.7 K/uL (4.8-10.8)
[2019-05-21] MEDS: NACL 0.9% 1,000 ML IV SCH ×2 (06:24→21:42)
--- NOTE | 2019-05-21 06:30 | NUR ---
DR JACOBS IN TO ASSESS PT.
[2019-05-21 06:49] LABS: ANION GAP 10.7 (8-16); CARBON DIOXIDE 25.8 mmol/L (21-32); CREATININE 0.6 mg/dL (0.6-1.3); POTASSIUM 3.5 mmol/L (3.5-5.1)
[2019-05-21 06:53] LABS: MAGNESIUM 1.8 mg/dL (1.8-2.4); PHOSPHORUS 3.4 mg/dL (2.5-4.9)
--- NOTE | 2019-05-21 07:08 | NUR ---
BEDSIDE REPORT GIVEN TO AM SHIFT RN FOR CONTINUITY OF CARE. PT IN STABLE CONDITION.
--- NOTE | 2019-05-21 07:15 | NUR ---
RECEIVED REPORT FROM STRAP SETTER RN. PT IS AAOX3. PT IS CALM AND ABLE TO FOLLOW COMMANDS. SR ON MONITOR. LUNG SOUNDS CLEAR. BOWELS SOUNDS ACTIVE, ABDOMEN SOFT, ROUND, NON TENDER. SKIN IS WARM AND DRY. DENIES PAIN. NO COMPLAINS AT THIS TIME. IV TO THE RIGHT AC 22G, RUNNING IVF, ASYMPTOMATIC. LEFT AC 20G, SL. NO ENEMA. VAGINAL BLEEDING STOPPED PER PT. HYGIENE PAD HAS ONLY SPOTTING OF BLOOD. CALL LIGHT WITHIN REACH, BED LOCKED IN LOWEST POSITION. WILL CONTINUE TO MONITOR.
[2019-05-21] MEDS: ATORVASTATIN 20 MG TAB PO SCH (08:00)
[2019-05-21] MEDS: FERROUS SULFATE 325 MG TABEC PO SCH ×2 (08:00→17:31)
[2019-05-21] MEDS ORDERED: ROC1PM IV (08:17)
[2019-05-21] MEDS ORDERED: DEXT5SYR3 PO (08:17)
--- NOTE | 2019-05-21 08:20 | NUR ---
RECEIVED PT. FROM ICU NURSEBRENDA. PT. IS ALERT AND AWAKE. V/S BP 130/82, HR 104, TEMP 98.2, RR 16, O2 STAT 98% AND 0 PAIN. IV IS ON THE RIGHT ARM 22G WITH NS RUNNING 60ML/HR. NO SIGNS OF DISTRESS. FALL PRECAUTION INITIATED. CALL LIGHT WITHIN REACH. FAMILY AT BEDSIDE. WILL CONTINUE TO MONITOR.
--- NOTE | 2019-05-21 08:20 | NUR ---
TRANSFERRED PT TO TELE NURSE KAILASH.
[2019-05-21] MEDS ORDERED: ASCORBIC ACID 500 MG TAB PO SCH (09:00)
--- NOTE | 2019-05-21 10:30 | NUR ---
PT. IS RESTING AND STILL PENDING ON INFORMATION ABOUT TRANSFER.
--- NOTE | 2019-05-21 13:30 | NUR ---
[facility] TRANSPORT CAME BUT WAS INFORMED BY CHARGE NURSE, PETER, THAT TRANSFER TO [facility] IS CANCELLED AND PROCEDURE IS RESCHEDULED FOR TOMORROW AND CATTLE BRANDER BY [facility] IS 0700. WILL ENDORSE TO DIVIDEND CLERK NURSE.
--- NOTE | 2019-05-21 15:00 | NUR ---
PT. IS INFORMED THAT PROCEDURE IS RESCHEDULED FOR TOMORROW. FOOD IS GIVEN NOW, SON ON THE BEDSIDE.
--- NOTE | 2019-05-21 17:31 | NUR ---
AFTERNOON MEDICATION GIVEN. PT. TOLERATED WELL. WILL CONTINUE TO MONITOR.
--- NOTE | 2019-05-21 19:20 | NUR ---
ENDORSED PT. TO SENIOR NET C DEVELOPER NURSE FOR CONTINUITY OF CARE.
--- NOTE | 2019-05-21 19:21 | NUR ---
RECEIVED PT. AM NURSE .PT. IS ALERT AND AWAKE, AMBULATORY . WITH IV IS ON THE RIGHT ARM 22G WITH NS RUNNING 60ML/HR. NO SIGNS OF DISTRESS. FALL PRECAUTION INITIATED. CALL LIGHT WITHIN REACH. FAMILY AT BEDSIDE. WILL CONTINUE TO MONITOR.
[2019-05-22] VITALS: BP 116/72
--- NOTE | 2019-05-22 03:01 | NUR ---
PER PATIENT SHE WENT TO THE BATHROOM EARLIER, NO BLEEDING ON THE PADS NOTED.
[2019-05-22 04:00] VITALS: BP 115/75
--- NOTE | 2019-05-22 07:30 | NUR ---
[facility] ARRIVED GAVE REPORT TO THE AM SHIFT NURSE AND THE [facility]. ALSO TALKED TO MORE OF [facility] CATH NURSE. AND WAS INDORMED BY MORE THAT MS. BLUM IS ONLY ARRANGED OUT PATIENT AND PT NEEDS TO GO BACK TO [facility]. INFORMED PETER AND PETER WILL INFORM IT COMPLIANCE MANAGER DAWSON, THAT NEEDS TO HOSPITALIZED AT [facility] AFTER THE IV FILTER PROCEDURE.
--- NOTE | 2019-05-22 07:45 | NUR ---
PT TRANSFERRED OUT TO [facility] FOR IVC PLACEMENT VIA [facility].
== END 2019-05-22 07:45 | disposition short-term general hospital (02) | DRG 532 ==
LOC: MED 16:10 → MIC 21:18 → MTU 05-21 08:20
PROVIDERS: ADMIT General Practice; ATTEND General Practice
PROC: 30233N1 Transfusion of Nonautologous Red Blood Cells into Peripheral Vein, Percutaneous Approach (ICD-10-PCS; principal; 2019-05-20)
DX: D25.9 Leiomyoma of uterus, unspecified (principal); R57.8 Other shock; E44.0 Moderate protein-calorie malnutrition; R65.10 Systemic inflammatory response syndrome (SIRS) of non-infectious origin without acute organ dysfunction; Z68.41 Body mass index [BMI] 40.0-44.9, adult; D64.9 Anemia, unspecified; N39.0 Urinary tract infection, site not specified; E66.9 Obesity, unspecified; Z86.711 Personal history of pulmonary embolism; I10 Essential (primary) hypertension; E78.2 Mixed hyperlipidemia; K57.90 Diverticulosis of intestine, part unspecified, without perforation or abscess without bleeding; Z88.5 Allergy status to narcotic agent; Z86.718 Personal history of other venous thrombosis and embolism
CPT/HCPCS: 36415; 71045; 76830; 80048; 80053; 80305; 81001; 82150; 83036; 83690; 83735; 83880; 84100; 84436; 84439; 84443; 84479; 84484; 85025; 85610; 85730; 86870; 86886; 86900; 86901; 86920; 87040; 87081; 87086; 93005; 93970; 96360; 99285; J0696; J1050; J3490; J7030; J7042; J7060; P9016; Q0092